=== PATIENT | male | born 1955 | race Caucasian/White ===

== ENCOUNTER 2022-01-01 11:44 | Emergency (ER) | payer MEDICARE ==
[2022-01-01 11:53] VITALS: RESP 18
[2022-01-01] MEDS ORDERED: SODIUM CHLORIDE 0.9% 500 ML 500 ML IV ONE (12:01)
[2022-01-01] MEDS ORDERED: ORPHENADRINE 30 MG/ML 2 ML VIAL IVP STA (12:07)
[2022-01-01] MEDS ORDERED: MORPHINE SULFATE 4 MG/ML SYRINGE IVP STA (12:12)
[2022-01-01 12:43] LABS: Basophils # (A) 0.1 k/uL (0-0.2); Basophils % (A) 0 %; Eosinophils % (A) 0 %; HCT 47.3 % (39.0-53.0); HGB 15.1 gm/dL (13.0-17.5); Lymphocytes % (A) 33 %; MCH 30.3 pg (25.0-35.0); MCHC 31.9 g/dL (31.0-37.0); Mean Platelet Volume 7.4; Monocytes # (A) 0.8 k/uL (0-1.0); Monocytes % (A) 5 %; Neutrophils # (A) 8.8 k/uL (1.3-7.7); Neutrophils % (A) 59 %; Platelet Count 330 k/uL (150-450); RBC 4.98 m/uL (4.30-5.90); RDW 12.8 % (11.5-15.5)
--- NOTE | 2022-01-01 12:43 | CT ---
EXAMINATION TYPE: CT brain cspine wo con DATE OF EXAM: 01/01/2022 COMPARISON: CT brain January 22, 2012 HISTORY: fall injury following seizure with neck pain. CT DLP: 1415.2 mGycm. Automated Exposure Control for Dose Reduction was Utilized. TECHNIQUE: CT scan of the head and cervical spine are performed without contrast. FINDINGS: There is no acute intracranial hemorrhage, mass effect, or midline shift identified. The ventricles and sulci are within normal limits in size for patient's age. Some areas of low attenuati on are nonspecific for reference left inferior parietal region axial image 40 and new from 2012 CT . Similar findings seen in inferior right parietal occipital region axial image 46. The globes are inta ct and the visualized sinuses are clear. The calvarium is intact. Cerumen in the bilateral extra emily tory canals is noted. Cervical spine is visualized in its entirety from C1 through upper thoracic levels and demonstrates l evoconvex scoliosis centered in the upper thoracic spine. There is grade 1 retrolisthesis C3 on C4 an d C4 on C5 along with C5 on C6 and to lesser degree C6 on C7. Prevertebral soft tissue appears within normal limits. The C1-C2 articulation is within normal limits on the coronal images. Vertebral bod y heights are maintained. Moderate to severe disc space narrowing C3-C4 and C5-C6 along with C6-C7 le vels is present. Moderate posterior spurring C5-C6 and C6-C7 levels effaces the anterior thecal sac. Old nonhealed fracture of the posterior T1 spinous process sagittal image 51 is noted as well-defined lucency is present. Review of axial images show multilevel vertebral facet spurring causing bilateral multifocal level ne ural foraminal narrowing. Thyroid gland appears within normal limits. Lung apices show no pneumothora x. IMPRESSION: 1. There is no acute fracture or dislocation evident in the cervical spine. 2. No acute intracranial hemorrhage or midline shift is seen.
[2022-01-01 12:50] LABS: Albumin 4.8 g/dL (3.5-5.0); Calcium 9.5 mg/dL (8.4-10.2); Magnesium 1.8 mg/dL (1.6-2.3); Potassium 3.6 mmol/L (3.5-5.1); Total Bilirubin 0.7 mg/dL (0.2-1.3); Total Protein 7.3 g/dL (6.3-8.2)
[2022-01-01 13:03] LABS: Prothrombin Time 11.2 sec (9.0-12.0)
--- NOTE | 2022-01-01 13:17 | ED ---
General Adult HPI - General Chief complaint: Altered Mental Status Stated complaint: Weakness Time Seen by Provider: 01/01/22 12:01 Source: patient, family, EMS, RN notes reviewed Mode of arrival: EMS Limitations: altered mental status - History of Present Illness Initial comments: Patient is a 66-year-old male presenting to the emergency room via EMS after his son witnessed seizure-like activity with altered mental status afterwards. Since the event his mental status is slowly improving back to baseline. He does continue to have generalized body aches and back pain unfortunately it is not determined if he hit his back upon falling to the ground. He and his son are unsure if he hit his head as well however he has no lacerations. He denies any previous seizure activity. He denies any focal neurological deficits or weakness. He admits to previous alcohol and drug use and is currently under court ordered testing for alcohol and drug use but reports having a medical marijuana card allowing him to use marijuana during his probation. He denies any seizure activity due to withdrawals in the past. His family reports that he was doing extensive yard work in the heat when his symptoms occurred. He has a past medical history significant for hypertension and questionable brain aneurysm. - Related Data Previous Rx's Medication Instructions Recorded Cyclobenzaprine HCl 10 mg PO Q8H 7 Days #21 tab 01/01/22 Allergies Allergy/AdvReac Type Severity Reaction Status Date / Time No Known Allergies Allergy Verified 01/01/22 11:54 Review of Systems ROS Statement: Those systems with pertinent positive or pertinent negative responses have been documented in the HPI. ROS Other: All systems not noted in ROS Statement are negative. Past Medical History Past Medical History: Hypertension Additional Past Medical History / Comment(s): Brain aneurysm 2020, History of Any Multi-Drug Resistant Organisms: None Reported Past Surgical History: Appendectomy Additional Past Surgical History / Comment(s): Right knee replacement, right arm surgery, Past Psychological History: No Psychological Hx Reported Smoking Status: Current every day smoker Past Alcohol Use History: Occasional Past Drug Use History: Marijuana General Exam General appearance: alert, in no apparent distress Head exam: Present: atraumatic, normocephalic, normal inspection Eye exam: Present: normal appearance, PERRL, EOMI. Absent: scleral icterus, conjunctival injection, periorbital swelling ENT exam: Present: normal exam, mucous membranes moist Neck exam: Present: normal inspection. Absent: tenderness, meningismus, lymphadenopathy Respiratory exam: Present: normal lung sounds bilaterally. Absent: respiratory distress, wheezes, rales, rhonchi, stridor Cardiovascular Exam: Present: regular rate, normal rhythm, normal heart sounds. Absent: systolic murmur, diastolic murmur, rubs, gallop, clicks GI/Abdominal exam: Present: soft, normal bowel sounds. Absent: distended, tenderness, guarding, rebound, rigid Extremities exam: Present: normal inspection, full ROM, normal capillary refill. Absent: tenderness, pedal edema, joint swelling, calf tenderness Back exam: Present: tenderness, muscle spasm, other (localized swelling without ecchymosis or abrasion to fine near T8) Neurological exam: Present: alert, oriented X3, CN II-XII intact Expanded [place] Total: 15 Psychiatric exam: Present: anxious Skin exam: Present: warm, dry, intact, normal color. Absent: rash Course Vital Signs 01/01/22 01/01/22 01/01/22 11:46 13:05 15:21 Temperature 98.1 F Pulse Rate 125 H 82 75 Respiratory 18 18 18 Rate Blood Pressure 186/96 141/112 186/100 O2 Sat by Pulse 97 100 100 Oximetry 01/01/22 16:33 Temperature 98.4 F Pulse Rate 98 Respiratory 18 Rate Blood Pressure 179/113 O2 Sat by Pulse 99 Oximetry Medical Decision Making - Medical Decision Making 66-year-old male with syncopal event with seizure-like activity. No previous seizure activity. Altered mental status improving slowly.Due to unknown trauma to the head and syncopal event will check CT of the head and cervical spine, x-ray of thoracic and lumbar spine, EKG, CBC, CMP, lactic acid, urin alysis, troponin, coags and urine drug screen. Will continue IV hydration and give muscle relaxer. CBC with leukocytosis noted and urinalysis with bacteria. Coags normal. Troponin negative. Lactic acid elevated with mild elevation in creatinine noted. Will continue IV hydration and repeat lactic acid. EKG shows sinus tachycardia likely secondary to dehydration and pain. Will give morphine for pain and continue IV fluids. Still complaining of persistent pain however history of opiate abuse concern for opiate tolerance will give an additional 4 mg of morphine. Lactic acid significantly improved upon recheck. CT of brain and cervical spine without acute abnormalities. X-ray of thoracic and lumbar spine shows significant degenerative disc disease correlating with patient's chronic back pain no acute osseous abnormalities. Overall symptoms of generalized body aches along with altered mental status improved with mental status back to baseline after good IV hydration. Discussed urinary tract infection findings along with dehydration status. Will treat with short course of antibiotics. Encouraged good oral hydration and follow-up with primary care provider; no indication for further diagnostic testing or laboratory studies at this time. No indication for admission or observation stay. Case discussed with Dr. Qureshi. - Lab Data Result diagrams: 01/01/22 12:03 01/01/22 14:39 Lab Results 01/01/22 01/01/22 01/01/22 Range/Units 12:03 12:03 12:03 WBC 15.0 H (3.8-10.6) k/uL RBC 4.98 (4.30-5.90) m/uL Hgb 15.1 (13.0-17.5) gm/dL Hct 47.3 (39.0-53.0) % MCV 95.0 (80.0-100.0) fL MCH 30.3 (25.0-35.0) pg MCHC 31.9 (31.0-37.0) g/dL RDW 12.8 (11.5-15.5) % Plt Count 330 (150-450) k/uL MPV 7.4 Neutrophils % 59 % Lymphocytes % 33 % Monocytes % 5 % Eosinophils % 0 % Basophils % 0 % Neutrophils # 8.8 H (1.3-7.7) k/uL Lymphocytes # 5.0 H (1.0-4.8) k/uL Monocytes # 0.8 (0-1.0) k/uL Eosinophils # 0.0 (0-0.7) k/uL Basophils # 0.1 (0-0.2) k/uL PT 11.2 (9.0-12.0) sec INR 1.0 (<1.2) APTT 21.1 L (22.0-30.0) sec Sodium 140 (137-145) mmol/L Potassium 3.6 (3.5-5.1) mmol/L Chloride 103 (98-107) mmol/L Carbon Dioxide 13 L (22-30) mmol/L Anion Gap 24 mmol/L BUN 14 (9-20) mg/dL Creatinine 1.40 H (0.66-1.25) mg/dL Est GFR (CKD-EPI)AfAm 60 (>60 ml/min/1.73 sqM) Est GFR (CKD-EPI)NonAf 51 (>60 ml/min/1.73 sqM) Glucose 131 H (74-99) mg/dL Lactic Ac Sepsis Rflx Plasma Lactic Acid Kvng (0.7-2.0) mmol/L Calcium 9.5 (8.4-10.2) mg/dL Magnesium 1.8 (1.6-2.3) mg/dL Total Bilirubin 0.7 (0.2-1.3) mg/dL AST 45 (17-59) U/L ALT 46 (4-49) U/L Alkaline Phosphatase 52 (38-126) U/L Troponin I (0.000-0.034) ng/mL Total Protein 7.3 (6.3-8.2) g/dL Albumin 4.8 (3.5-5.0) g/dL Urine Color Urine Appearance (Clear) Urine pH (5.0-8.0) Ur Specific [place] (1.001-1.035) Urine Protein (Negative) Urine Glucose (UA) (Negative) Urine Ketones (Negative) Urine Blood (Negative) Urine Nitrite (Negative) Urine Bilirubin (Negative) Urine Urobilinogen (<2.0) mg/dL Ur Leukocyte Esterase (Negative) Urine RBC (0-5) /hpf Urine WBC (0-5) /hpf Urine Bacteria (None) /hpf Hyaline Casts (0-2) /lpf Urine Mucus (None) /hpf Urine Opiates Screen (NotDetected) Ur Oxycodone Screen (NotDetected) Urine Methadone Screen (NotDetected) Ur Propoxyphene Screen (NotDetected) Ur Barbiturates Screen (NotDetected) U Tricyclic Antidepress (NotDetected) Ur Phencyclidine Scrn (NotDetected) Ur Amphetamines Screen (NotDetected) U Methamphetamines Scrn (NotDetected) U Benzodiazepines Scrn (NotDetected) Urine Cocaine Screen (NotDetected) U Marijuana (THC) Screen (NotDetected) 09/02/22 09/02/22 09/02/22 Range/Units 12:03 12:03 13:03 WBC (3.8-10.6) k/uL RBC (4.30-5.90) m/uL Hgb (13.0-17.5) gm/dL Hct (39.0-53.0) % MCV (80.0-100.0) fL MCH (25.0-35.0) pg MCHC (31.0-37.0) g/dL RDW (11.5-15.5) % Plt Count (150-450) k/uL MPV Neutrophils % % Lymphocytes % % Monocytes % % Eosinophils % % Basophils % % Neutrophils # (1.3-7.7) k/uL Lymphocytes # (1.0-4.8) k/uL Monocytes # (0-1.0) k/uL Eosinophils # (0-0.7) k/uL Basophils # (0-0.2) k/uL PT (9.0-12.0) sec INR (<1.2) APTT (22.0-30.0) sec Sodium (137-145) mmol/L Potassium (3.5-5.1) mmol/L Chloride (98-107) mmol/L Carbon Dioxide (22-30) mmol/L Anion Gap mmol/L BUN (9-20) mg/dL Creatinine (0.66-1.25) mg/dL Est GFR (CKD-EPI)AfAm (>60 ml/min/1.73 sqM) Est GFR (CKD-EPI)NonAf (>60 ml/min/1.73 sqM) Glucose (74-99) mg/dL Lactic Ac Sepsis Rflx Y Plasma Lactic Acid Kvng 14.4 H* (0.7-2.0) mmol/L Calcium (8.4-10.2) mg/dL Magnesium (1.6-2.3) mg/dL Total Bilirubin (0.2-1.3) mg/dL AST (17-59) U/L ALT (4-49) U/L Alkaline Phosphatase (38-126) U/L Troponin I 0.013 (0.000-0.034) ng/mL Total Protein (6.3-8.2) g/dL Albumin (3.5-5.0) g/dL Urine Color Urine Appearance (Clear) Urine pH (5.0-8.0) Ur Specific [place] (1.001-1.035) Urine Protein (Negative) Urine Glucose (UA) (Negative) Urine Ketones (Negative) Urine Blood (Negative) Urine Nitrite (Negative) Urine Bilirubin (Negative) Urine Urobilinogen (<2.0) mg/dL Ur Leukocyte Esterase (Negative) Urine RBC (0-5) /hpf Urine WBC (0-5) /hpf Urine Bacteria (None) /hpf Hyaline Casts (0-2) /lpf Urine Mucus (None) /hpf Urine Opiates Screen (NotDetected) Ur Oxycodone Screen (NotDetected) Urine Methadone Screen (NotDetected) Ur Propoxyphene Screen (NotDetected) Ur Barbiturates Screen (NotDetected) U Tricyclic Antidepress (NotDetected) Ur Phencyclidine Scrn (NotDetected) Ur Amphetamines Screen (NotDetected) U Methamphetamines Scrn (NotDetected) U Benzodiazepines Scrn (NotDetected) Urine Cocaine Screen (NotDetected) U Marijuana (THC) Screen (NotDetected) 01/01/22 01/01/22 01/01/22 Range/Units 13:17 13:57 14:39 WBC (3.8-10.6) k/uL RBC (4.30-5.90) m/uL Hgb (13.0-17.5) gm/dL Hct (39.0-53.0) % MCV (80.0-100.0) fL MCH (25.0-35.0) pg MCHC (31.0-37.0) g/dL RDW (11.5-15.5) % Plt Count (150-450) k/uL MPV Neutrophils % % Lymphocytes % % Monocytes % % Eosinophils % % Basophils % % Neutrophils # (1.3-7.7) k/uL Lymphocytes # (1.0-4.8) k/uL Monocytes # (0-1.0) k/uL Eosinophils # (0-0.7) k/uL Basophils # (0-0.2) k/uL PT (9.0-12.0) sec INR (<1.2) APTT (22.0-30.0) sec Sodium 137 (137-145) mmol/L Potassium 3.6 (3.5-5.1) mmol/L Chloride 107 (98-107) mmol/L Carbon Dioxide 17 L (22-30) mmol/L Anion Gap 13 mmol/L BUN 14 (9-20) mg/dL Creatinine 1.02 (0.66-1.25) mg/dL Est GFR (CKD-EPI)AfAm 87 (>60 ml/min/1.73 sqM) Est GFR (CKD-EPI)NonAf 75 (>60 ml/min/1.73 sqM) Glucose 98 (74-99) mg/dL Lactic Ac Sepsis Rflx Plasma Lactic Acid Kvng (0.7-2.0) mmol/L Calcium 8.5 (8.4-10.2) mg/dL Magnesium (1.6-2.3) mg/dL Total Bilirubin (0.2-1.3) mg/dL AST (17-59) U/L ALT (4-49) U/L Alkaline Phosphatase (38-126) U/L Troponin I (0.000-0.034) ng/mL Total Protein (6.3-8.2) g/dL Albumin (3.5-5.0) g/dL Urine Color Yellow Urine Appearance Clear (Clear) Urine pH 6.0 (5.0-8.0) Ur Specific [place] 1.017 (1.001-1.035) Urine Protein 1+ H (Negative) Urine Glucose (UA) Negative (Negative) Urine Ketones 1+ H (Negative) Urine Blood Negative (Negative) Urine Nitrite Negative (Negative) Urine Bilirubin Negative (Negative) Urine Urobilinogen 2.0 (<2.0) mg/dL Ur Leukocyte Esterase Trace H (Negative) Urine RBC 2 (0-5) /hpf Urine WBC 5 (0-5) /hpf Urine Bacteria Rare H (None) /hpf Hyaline Casts 14 H (0-2) /lpf Urine Mucus Rare H (None) /hpf Urine Opiates Screen Detected H (NotDetected) Ur Oxycodone Screen Not Detected (NotDetected) Urine Methadone Screen Not Detected (NotDetected) Ur Propoxyphene Screen Not Detected (NotDetected) Ur Barbiturates Screen Not Detected (NotDetected) U Tricyclic Antidepress Not Detected (NotDetected) Ur Phencyclidine Scrn Not Detected (NotDetected) Ur Amphetamines Screen Not Detected (NotDetected) U Methamphetamines Scrn Not Detected (NotDetected) U Benzodiazepines Scrn Not Detected (NotDetected) Urine Cocaine Screen Not Detected (NotDetected) U Marijuana (THC) Screen Detected H (NotDetected) 01/01/22 01/01/22 Range/Units 14:39 15:05 WBC (3.8-10.6) k/uL RBC (4.30-5.90) m/uL Hgb (13.0-17.5) gm/dL Hct (39.0-53.0) % MCV (80.0-100.0) fL MCH (25.0-35.0) pg MCHC (31.0-37.0) g/dL RDW (11.5-15.5) % Plt Count (150-450) k/uL MPV Neutrophils % % Lymphocytes % % Monocytes % % Eosinophils % % Basophils % % Neutrophils # (1.3-7.7) k/uL Lymphocytes # (1.0-4.8) k/uL Monocytes # (0-1.0) k/uL Eosinophils # (0-0.7) k/uL Basophils # (0-0.2) k/uL PT (9.0-12.0) sec INR (<1.2) APTT (22.0-30.0) sec Sodium (137-145) mmol/L Potassium (3.5-5.1) mmol/L Chloride (98-107) mmol/L Carbon Dioxide (22-30) mmol/L Anion Gap mmol/L BUN (9-20) mg/dL Creatinine (0.66-1.25) mg/dL Est GFR (CKD-EPI)AfAm (>60 ml/min/1.73 sqM) Est GFR (CKD-EPI)NonAf (>60 ml/min/1.73 sqM) Glucose (74-99) mg/dL Lactic Ac Sepsis Rflx Y Plasma Lactic Acid Kvng 2.2 H* (0.7-2.0) mmol/L Calcium (8.4-10.2) mg/dL Magnesium (1.6-2.3) mg/dL Total Bilirubin (0.2-1.3) mg/dL AST (17-59) U/L ALT (4-49) U/L Alkaline Phosphatase (38-126) U/L Troponin I (0.000-0.034) ng/mL Total Protein (6.3-8.2) g/dL Albumin (3.5-5.0) g/dL Urine Color Urine Appearance (Clear) Urine pH (5.0-8.0) Ur Specific [place] (1.001-1.035) Urine Protein (Negative) Urine Glucose (UA) (Negative) Urine Ketones (Negative) Urine Blood (Negative) Urine Nitrite (Negative) Urine Bilirubin (Negative) Urine Urobilinogen (<2.0) mg/dL Ur Leukocyte Esterase (Negative) Urine RBC (0-5) /hpf Urine WBC (0-5) /hpf Urine Bacteria (None) /hpf Hyaline Casts (0-2) /lpf Urine Mucus (None) /hpf Urine Opiates Screen (NotDetected) Ur Oxycodone Screen (NotDetected) Urine Methadone Screen (NotDetected) Ur Propoxyphene Screen (NotDetected) Ur Barbiturates Screen (NotDetected) U Tricyclic Antidepress (NotDetected) Ur Phencyclidine Scrn (NotDetected) Ur Amphetamines Screen (NotDetected) U Methamphetamines Scrn (NotDetected) U Benzodiazepines Scrn (NotDetected) Urine Cocaine Screen (NotDetected) U Marijuana (THC) Screen (NotDetected) - EKG Data EKG Comments: Sinus tachycardia, ventricular rate 120 bpm, MD interval 170 ms, QR yazdanism 91 ms, QT/QTC 370/30 and 79 ms, PRT axes 55, 27, 40 - Radiology Data Radiology results: report reviewed, image reviewed CT brain and cervical spine without contrast impression no acute fracture or dislocation evident the cervical spine. No acute intracranial hemorrhage or midl ine shift is seen. X-ray of lumbar spine shows moderate degenerative disc changes throughout the lumbar spine. Spondylitic doses. No acute osseous abnormalities. X-ray thoracic spine shows mild degenerative disc changes thoracic spine. No acute osseous abnormalities. Disposition Clinical Impression: New onset seizure Disposition: HOME SELF-CARE Condition: Stable Instructions (If sedation given, give patient instructions): Seizure/Epilepsy Discharge Instructions & Follow-Up Additional Instructions: Please stay well hydrated. Please follow-up with your primary care provider. Do not drive or operate any machinery until you of seeing your primary care provider and have been cleared. Please return to the Emergency Department if symptoms worsen or any other concerns. Prescriptions: Cyclobenzaprine HCl 10 mg PO Q8H 7 Days #21 tab Is patient prescribed a controlled substance at d/c from ED?: No Referrals: None,Stated [Primary Care Provider] - 1-2 days Time of Disposition: 15:54
[2022-01-01 13:23] LABS: Partial Thromboplastin Time 21.1 sec (22.0-30.0)
[2022-01-01] MEDS ORDERED: SODIUM CHLORIDE 0.9% 1,000 ML IV STA (13:34)
[2022-01-01] MEDS ORDERED: MORPHINE SULFATE 2 MG/ML SYRINGE IVP STA (13:34)
--- NOTE | 2022-01-01 13:40 | XR ---
EXAMINATION TYPE: XR lumbar spine 2 or 3V DATE OF EXAM: 01/01/2022 COMPARISON: None HISTORY: Fall TECHNIQUE: 3 view lumbar spine FINDINGS: There are 5 lumbar-type vertebral bodies. Pedicles appear intact. Degenerative disc changes are present throughout the lumbar spine. Spondylosis is present. Alignment appears preserved. Verteb ral body heights are preserved. IMPRESSION: 1. Moderate degenerative disc changes throughout the lumbar spine. 2. Spondylosis. 3. No acute osseous abnormality.
--- NOTE | 2022-01-01 13:41 | XR ---
EXAMINATION TYPE: XR thoracic spine 2V DATE OF EXAM: 01/01/2022 COMPARISON: None HISTORY: Back pain, fall TECHNIQUE: 3 views thoracic spine FINDINGS: 12 thoracic type vertebral bodies. The pedicles are intact. Subtle scoliosis present in the lower thoracic spine. Some spondylosis is present. Vertebral body heights are preserved. Mild diffus e disc space narrowing is present. IMPRESSION: 1. Mild degenerative disc changes thoracic spine. 2. No acute osseous abnormality.
[2022-01-01 14:05] LABS: Appearance,Urine Clear (Clear); Bacteria,Urine Rare /hpf; Bilirubin,Urine Negative (Negative); Blood,Urine Negative (Negative); Color,Urine Yellow; Glucose,Urine (UA) Negative (Negative); Hyaline Casts,Urine 14 /lpf (0-2); Ketones,Urine 1+ (Negative); Leukocyte Esterase,Urine Trace (Negative); Mucus,Urine Rare /hpf; Nitrite,Urine Negative (Negative); Protein,Urine 1+ (Negative); RBC,Urine 2 /hpf (0-5); Specific Gravity,Urine 1.017 (1.001-1.035); WBC,Urine 5 /hpf (0-5)
[2022-01-01 14:18] LABS: Amphetamine Screen,Urine Not Detected (NotDetected); Barbiturate Screen,Urine Not Detected (NotDetected); Benzodiazepines Screen,Urine Not Detected (NotDetected); Cocaine Screen,Urine Not Detected (NotDetected); Methadone Screen, Urine Not Detected (NotDetected); Opiate Screen,Urine Detected (NotDetected); Oxycodone Screen, Urine Not Detected (NotDetected); Phencyclidine Screen,Urine Not Detected (NotDetected); Tricyclic Antidepressant,Urine Not Detected (NotDetected); Urn Cannabinoid Scrn Detected (NotDetected)
[2022-01-01] MEDS ORDERED: SODIUM BICARB 8.4% 50 ML SYR (1 MEQ/ML) IV STA (14:24)
[2022-01-01 15:01] LABS: Calcium 8.5 mg/dL (8.4-10.2); Potassium 3.6 mmol/L (3.5-5.1)
[2022-01-01 16:35] VITALS: BP 179/113; PULSE 98; TEMP 98.4
== END 2022-01-01 16:35 | disposition home or self-care (01) ==
LOC: EC 11:44
DX: R56.9 Unspecified convulsions (principal); M54.50 Low back pain, unspecified; F12.90 Cannabis use, unspecified, uncomplicated; F11.90 Opioid use, unspecified, uncomplicated; D72.829 Elevated white blood cell count, unspecified; I10 Essential (primary) hypertension; F17.200 Nicotine dependence, unspecified, uncomplicated
CPT/HCPCS: 36415; 93005; 80053; 80048; 83605; 83735; 84484; 85025; 85610; 85730; 81001; 80306; 72070; 72100; 72125; 70450; 99285; 96374; 96375; 96376; 96361; J2270 ×2; J2360

== ENCOUNTER 2022-05-18 12:30 | Inpatient (IN) | payer MEDICARE, OTHER ==
[2022-05-18 12:54] LABS: Glucose,Whole Blood 106 mg/dL (70-110)
--- NOTE | 2022-05-18 12:55 | ED ---
General Adult HPI - General Chief complaint: Neuro Symptoms/Deficit Stated complaint: altered Time Seen by Provider: 05/18/22 12:39 Source: patient, family, RN notes reviewed Mode of arrival: wheelchair Limitations: altered mental status - History of Present Illness Initial comments: Patient is a pleasant 66-year-old male presenting to the emergency Department with concerns for change in mental status. Majority of history is taken from sun. Patient provides minimal history. Patient does have history of brain cancer with tumor resection just over a month ago. Patient also has received one treatment of radiation. Patient is on oral chemotherapy. No blood thinners. Patient was on steroids. Patient did have somewhat similar symptoms to today when he went off steroids and these were restarted. Patient was doing fine when he left MRI today. MRI was done routinely. When patient got to the car she was nonverbal. Patient had difficulty following commands and was staring. Patient is near nonverbal at this time however does slowly improve and is able to state his last name when prompted. - Related Data Previous Rx's Medication Instructions Recorded Cyclobenzaprine HCl 10 mg PO Q8H 7 Days #21 tab 01/01/22 Allergies Allergy/AdvReac Type Severity Reaction Status Date / Time No Known Allergies Allergy Verified 05/18/22 12:38 Review of Systems ROS Statement: Those systems with pertinent positive or pertinent negative responses have been documented in the HPI. ROS Other: All systems not noted in ROS Statement are negative. Limitations: ROS unobtainable due to patients medical condition Past Medical History Past Medical History: Hypertension Additional Past Medical History / Comment(s): Brain aneurysm 2020, History of Any Multi-Drug Resistant Organisms: None Reported Past Surgical History: Appendectomy Additional Past Surgical History / Comment(s): Right knee replacement, right arm surgery, Past Psychological History: No Psychological Hx Reported Smoking Status: Current every day smoker Past Alcohol Use History: Occasional Past Drug Use History: Marijuana General Exam Limitations: altered mental status General appearance: alert Head exam: Present: atraumatic Eye exam: Present: normal appearance, PERRL, other (Slight deficit with right eye fully movement to the right side) Neck exam: Present: normal inspection Respiratory exam: Present: normal lung sounds bilaterally Cardiovascular Exam: Present: regular rate, normal rhythm GI/Abdominal exam: Present: soft. Absent: tenderness Extremities exam: Present: normal inspection Neurological exam: Present: alert, altered Expanded Neurological exam: Present: inattentive, memory loss-remote event, memory loss- recent event, total aphasia (That does slightly improve with time) Cranial nerves: EOM's Intact: Abnormal Right (Difficulty moving gaze to the far right) Motor strength exam: RUE: 5, LUE: 5, RLE: 5, LLE: 5 Eye Response: (4) open spontaneously Motor Response: (6) obeys commands (Needs to be commanded multiple times) Verbal Response: (3) inappropriate words Psychiatric exam: Present: flat affect Skin exam: Present: normal color Course Vital Signs 05/18/22 05/18/22 12:35 12:49 Temperature 98.0 F Pulse Rate 59 L 59 L Respiratory 16 18 Rate Blood Pressure 148/81 131/82 O2 Sat by Pulse 95 98 Oximetry - Reevaluation(s) Reevaluation #1: 05/18/22 12:55 Case somewhat delayed by patient noncompliance. Case was discussed with practitioner Isabel walters who does not feel patient is a TPA candidate. 05/18/22 13:00 Case also discussed with Dr. Solis who thinks patient is likely of a poor candidate for TPA however would recommend running this through neurology. Ther efore code stroke has been called. 05/18/22 13:05 Son states last known well was 1220 05/18/22 13:[address] winslow who confirms patient is not a TPA candidate. There is concern for seizure and recent procedure and history. Risks are felt to outweigh the benefit. EKG Findings - EKG Results: EKG: interpreted by ERMD, sinus rhythm, normal axis, normal QRS, normal ST/T EKG shows: bradycardia Medical Decision Making - Medical Decision Making Patient reevaluated and is significantly improved. Patient and family are updated on results and plan. Dr. Bolden has been paged for admission covering city call. Neurology and oncology will be placed on consult Was pt. sent in by a medical professional or institution (, PA, STORE SALES MANAGER, urgent care, hospital, or longterm...) When possible be specific @ -No Did you speak to anyone other than the patient for history (EMS, parent, family, police, friend...)? What history was obtained from this source @ -Patient's son is present and helps provide history additional history was also taken from practitioner Tanya walters and Dr. Gloria Did you review nursing and triage notes (agree or disagree)? Why? @ -Yes and agree Were old charts reviewed (outside hosp., previous admission, EMS record, old EKG, old radiological studies, urgent care reports/EKG's, longterm records)? Report findings @ -Previous notes reviewed with practitioner Tanya walters. Differential Diagnosis (chest pain, altered mental status, abdominal pain women, abdominal pain men, vaginal bleeding, weakness, fever, dyspnea, syncope, headache, dizziness, GI bleed, back pain, seizure, CVA, palpatations, mental health)? @ -[Differential Syncope: Valvular disease, hypertrophic cardiomyopathy, pulmonary embolism, tamponade, tachycardia, bradycardia, PR, hypovolemia, hemorrhage, dissection, anemia, intracranial hemorrhage, seizure, hypoglycemia, carbon monoxide poisoning, this is not meant to be an all-inclusive list.e] EKG interpreted by me (3pts min.). @ -[As above] X-rays interpreted by me (1pt min.). @ -[None done] CT interpreted by me (1pt min.). @ -As above U/S interpreted by me (1pt. min.). @ -[None done] What testing was considered but not performed or refused? (CT, X-rays, U/S, labs)? Why? @ -[None] What meds were considered but not given or refused? Why? @ -TPA considered however patient not felt candidate, see above Did you discuss the management of the patient with other professionals (professionals i.e. , PA, STORE SALES MANAGER, lab, RT, psych nurse, renal social worker, whey department operator, teacher, chief business officer, heel caser)? Give summary @ -Manage meant discussed with practitioner Tanya walters, Dr. Gloria, and Dr. winslow Was smoking cessation discussed for >3mins.? @ -[No] Was critical care preformed (if so, how long)? @ -Yes, 33 minutes Were there social determinants of health that impacted care today? How? (Homelessness, low income, unemployed, alcoholism, drug addiction, transportation, low edu. Level, literacy, decrease access to med. care, [facility], rehab)? @ -[No] Was there de-escalation of care discussed even if they declined (Discuss DNR or withdrawal of care, Hospice)? DNR status @ -[No] What co-morbidities impacted this encounter? (DM, HTN, Smoking, COPD, CAD, Can cer, CVA, ARF, Chemo, Hep., AIDS, mental health diagnosis, sleep apnea, morbid obesity)? @ -Comorbidities of brain cancer with recent surgery. Also question recent radiation and chemotherapy however this appears not to be true Was patient admitted / discharged? Hospital course, mention meds given and route, prescriptions, significant lab abnormalities, going to OR and other pertinent info. @ -Patient will be admitted. Undiagnosed new problem with uncertain prognosis? @ -Potential new onset seizure versus edema from tumor. Drug Therapy requiring intensive monitoring for toxicity (Heparin, Nitro, Insulin, Cardizem)? @ -[No] Were any procedures done? @ -[No] Diagnosis/symptom? @ -Altered mental status Acute, or Chronic, or Acute on Chronic? @ -Acute on chronic Uncomplicated (without systemic symptoms) or Complicated (systemic symptoms)? @ -Uncomplicated Side effects of treatment? @ -[No] Exacerbation, Progression, or Severe Exacerbation? @ -Severe exacerbation Poses a threat to life or bodily function? How? (Chest pain, USA, PR, pneumonia, PE, COPD, DKA, ARF, appy, cholecystitis, CVA, Diverticulitis, Homicidal, Suicidal, threat to staff... and all critical care pts) @ -This does pose threat to life for worsening symptoms of either edema or Growth or seizure or other. - Lab Data Result diagrams: 05/18/22 13:00 05/18/22 13:00 Lab Results 05/18/22 05/18/22 05/18/22 Range/Units 12:52 13:00 13:00 WBC 25.2 H (3.8-10.6) k/uL RBC 4.64 (4.30-5.90) m/uL Hgb 14.2 (13.0-17.5) gm/dL Hct 42.1 (39.0-53.0) % MCV 90.7 (80.0-100.0) fL MCH 30.7 (25.0-35.0) pg MCHC 33.8 (31.0-37.0) g/dL RDW 14.1 (11.5-15.5) % Plt Count 348 (150-450) k/uL MPV 6.9 PT 10.4 (9.0-12.0) sec INR 1.0 (<1.2) APTT 21.1 L (22.0-30.0) sec Sodium (137-145) mmol/L Potassium (3.5-5.1) mmol/L Chloride (98-107) mmol/L Carbon Dioxide (22-30) mmol/L Anion Gap mmol/L BUN (9-20) mg/dL Creatinine (0.66-1.25) mg/dL Est GFR (CKD-EPI)AfAm (>60 ml/min/1.73 sqM) Est GFR (CKD-EPI)NonAf (>60 ml/min/1.73 sqM) Glucose (74-99) mg/dL POC Glucose (mg/dL) 106 (70-110) mg/dL POC Glu Gear Room Keeper ID Jamieson, Yazan Calcium (8.4-10.2) mg/dL Total Bilirubin (0.2-1.3) mg/dL AST (17-59) U/L ALT (4-49) U/L Alkaline Phosphatase (38-126) U/L Total Protein (6.3-8.2) g/dL Albumin (3.5-5.0) g/dL 05/18/22 Range/Units 13:00 WBC (3.8-10.6) k/uL RBC (4.30-5.90) m/uL Hgb (13.0-17.5) gm/dL Hct (39.0-53.0) % MCV (80.0-100.0) fL MCH (25.0-35.0) pg MCHC (31.0-37.0) g/dL RDW (11.5-15.5) % Plt Count (150-450) k/uL MPV PT (9.0-12.0) sec INR (<1.2) APTT (22.0-30.0) sec Sodium 133 L (137-145) mmol/L Potassium 4.3 (3.5-5.1) mmol/L Chloride 99 (98-107) mmol/L Carbon Dioxide 28 (22-30) mmol/L Anion Gap 6 mmol/L BUN 25 H (9-20) mg/dL Creatinine 0.81 (0.66-1.25) mg/dL Est GFR (CKD-EPI)AfAm >90 (>60 ml/min/1.73 sqM) Est GFR (CKD-EPI)NonAf >90 (>60 ml/min/1.73 sqM) Glucose 109 H (74-99) mg/dL POC Glucose (mg/dL) (70-110) mg/dL POC Glu Gear Room Keeper ID Calcium 8.7 (8.4-10.2) mg/dL Total Bilirubin 0.4 (0.2-1.3) mg/dL AST 20 (17-59) U/L ALT 45 (4-49) U/L Alkaline Phosphatase 54 (38-126) U/L Total Protein 6.5 (6.3-8.2) g/dL Albumin 3.9 (3.5-5.0) g/dL - Radiology Data Interpreted by me: Computed tomography scan of the brain shows metastatic disease with encephalomalacia and postsurgical changes left posterior. No definitive stroke. This was as discussed with radiology. I did interpret the films as well. Critical Care Time Critical Care Time: Yes Total Critical Care Time: 33 Disposition Clinical Impression: Altered mental status Disposition: ADMITTED IP TO THIS HOSP Is patient prescribed a controlled substance at d/c from ED?: No Referrals: None,Stated [Primary Care Provider] - 1-2 days Time of Disposition: 13:47
[2022-05-18 13:12] LABS: HCT 42.1 % (39.0-53.0); HGB 14.2 gm/dL (13.0-17.5); MCH 30.7 pg (25.0-35.0); MCHC 33.8 g/dL (31.0-37.0); MCV 90.7 fL (80.0-100.0); Mean Platelet Volume 6.9; Platelet Count 348 k/uL (150-450); RBC 4.64 m/uL (4.30-5.90); RDW 14.1 % (11.5-15.5); WBC 25.2 k/uL (3.8-10.6)
--- NOTE | 2022-05-18 13:34 | CT ---
EXAMINATION TYPE: CT brain wo con for TPA CT DLP: 1205.6 mGycm, Automated exposure control for dose reduction was used. DATE OF EXAM: 05/18/2022 1:15 PM COMPARISON: Prior CT brain 03/30/2022, MRI brain 05/18/2022, 04/03/2022. CLINICAL INDICATION:Male, 66 years old with history of Neuro deficit, acute, stroke suspected, code s troke TECHNIQUE: Brain: Multiple axial CT images of the brain were obtained without IV contrast. Coronal and sagittal reformats reviewed. FINDINGS: Brain: Extra-axial spaces: No abnormal extra-axial fluid collections. Ventricular system: Effacement of the left lateral ventricle. Cerebral parenchyma: No acute intraparenchymal hemorrhage. Similar region of hypodensity adjacent to the right lateral ventricle frontal horn. Similar region of hypodensity with blurring of the cook-whi te differentiation in the left temporal parietal lobe consistent with cytotoxic and vasogenic edema l imited to known mass. The remaining cook-white junction is well differentiated. Cerebellum: Unremarkable. Mass effect: Midline shift to the right of 3 mm Intracranial vasculature: unremarkable Soft tissues: Normal. Calvarium/osseous structures: No depressed skull fracture. Post surgical changes of the left parietal bone. Paranasal sinuses and mastoid air cells: Clear Visualized orbits: Orbital contents are intact. IMPRESSION: 1. No acute intracranial hemorrhage. 2. Similar region of hypodensity adjacent to the right lateral ventricle frontal horn and left tempo ral parietal lobe related to known malignancy and vasogenic/cytotoxic edema. 3. Postsurgical changes of the left parietal lobe and left parietal temporal lobe region. Findings called to and discussed with Dr. Ledesma at 1:30 PM on 05/18/2022.
[2022-05-18 13:35] LABS: Prothrombin Time 10.4 sec (9.0-12.0)
[2022-05-18 13:38] LABS: ALT 45 U/L (4-49); AST 20 U/L (17-59); African American GFR (CKD) >90 (>60 ml/min/1.73 sqM); Albumin 3.9 g/dL (3.5-5.0); Alkaline Phosphatase 54 U/L (38-126); Anion Gap 6 mmol/L; Blood Urea Nitrogen 25 mg/dL (9-20); Calcium 8.7 mg/dL (8.4-10.2); Carbon Dioxide 28 mmol/L (22-30); Chloride 99 mmol/L (98-107); Glucose 109 mg/dL (74-99); Non-African American GFR(CKD) >90 (>60 ml/min/1.73 sqM); Potassium 4.3 mmol/L (3.5-5.1); Sodium 133 mmol/L (137-145); Total Bilirubin 0.4 mg/dL (0.2-1.3); Total Protein 6.5 g/dL (6.3-8.2)
[2022-05-18 13:39] LABS: Partial Thromboplastin Time 21.1 sec (22.0-30.0)
--- NOTE | 2022-05-18 13:51 | CT ---
EXAMINATION TYPE: CT angio head neck CT DLP: 595.5 mGycm, Automated exposure control for dose reduction was used. DATE OF EXAM: 05/18/2022 1:44 PM COMPARISON: CT brain 05/18/2022, 03/30/2022. CLINICAL INDICATION:Male, 66 years old with history of Neuro deficit, acute, stroke suspected; PHH, C [facility] TECHNIQUE: Axially acquired helical CT angiogram of the head and neck was obtained with contrast util izing 65 cc of Isovue-370 administered intravenously. Axial images are supplemented with 3D reconstru ctions which were post-processed at an independent workstation. NASCET criteria used. FINDINGS: CTA HEAD: Please refer to dedicated CT has same day for findings. The visualized portions of the internal carotid arteries, middle cerebral arteries, anterior cerebral arteries, and posterior cerebral arteries are patent. origin of the right posterior cerebral a rtery. The basilar and vertebral arteries are patent. CTA NECK: Right Carotid System: The common carotid artery and external carotid artery are patent. The carotid bifurcation demonstrate s minimal atherosclerotic plaque without evidence of hemodynamically significant stenosis. Medial dev iation of the right internal carotid artery. The remaining portions of the internal carotid artery de monstrate normal size without significant narrowing. Left Carotid System: The common carotid artery and external carotid artery are patent. The carotid bifurcation demonstrate s minimal atherosclerotic plaque without evidence of hemodynamically significant stenosis. The remain ing portions of the internal carotid artery demonstrate normal size without significant narrowing. Vertebral arteries are patent without evidence hemodynamically significant stenosis. There is a four-vessel aortic arch. The origins of the great vessels are patent. No evidence of hemod ynamically significant stenosis. Multilevel degenerative disc disease of the cervical spine. IMPRESSION: 1. No evidence of dissection of the cervical internal carotid arteries or vertebral arteries or any e vidence of significant stenosis at the carotid bifurcations. 2. No evidence of high-grade stenosis or intracranial aneurysm.
[2022-05-18 13:52] LABS: Lymphocytes # (M) 7.06 k/uL (1.0-4.8); Monocytes # (M) 2.27 k/uL (0-1.0); Neutrophils # (M) 15.88 k/uL (1.3-7.7); Neutrophils % (M) 63 %; Nucleated Red Blood Cells 0 /100 WBC (0-0); Total Cells Counted 100
[2022-05-18 13:54] LABS: RBC Morphology Normal
--- NOTE | 2022-05-18 14:00 | XR ---
EXAMINATION TYPE: XR chest 2V DATE OF EXAM: 05/18/2022 1:57 PM COMPARISON: None TECHNIQUE: XR chest 2V Frontal and lateral views of the chest. CLINICAL INDICATION:Male, 66 years old with history of altered mental status; FINDINGS: Lungs/Pleura: There is no evidence of pleural effusion, focal consolidation, or pneumothorax. Pulmonary vascularity: Unremarkable. Heart/mediastinum: Cardiomediastinal silhouette is unremarkable. Musculoskeletal: Multiple level degenerative disc disease changes seen throughout the spine. No acute osseous adenopathy. IMPRESSION: No acute cardiopulmonary disease/process.
[2022-05-18] MEDS ORDERED: LORazepam 2 MG/ML INJ IV PRN (15:43)
[2022-05-18] MEDS ORDERED: LACOSAMIDE IV 200 MG in SODIUM CHLORIDE 0.9% 50 ML IVPB STA (15:43)
[2022-05-18] MEDS ORDERED: LORazepam 2 MG/ML INJ IV STA (15:53)
[2022-05-18] MEDS ORDERED: DEXAMETHASONE SOD PHOSPHATE 4 MG/ML 1 ML VIAL IM SCH (16:13)
--- NOTE | 2022-05-18 16:16 | P.CNNES ---
History of Present Illness Consult date: 05/18/22 Requesting physician: Parvez Ledesma Reason for Consult: ams with oncology hx History of Present Illness: This is a 66-year-old gentleman with history of brain tumor over the left hemisphere status post resection in mid April 2022 and had recent chemotherapy and radiation, seizure who presented emergency department because of staring off episode and confusion. History is obtained from family members his son and his niece or at bedside. Seems that the patient has a history of left brain tumor status post resection in the mid of April 2022 and had a recent the chemoradiation therapy in last one to 2 weeks. According to the son patient had an MRI of the brain scheduled that today at 11:30 and once that there were done he was driving back and ever around 12:15 patient was staring off and not verbally responsive and the episode lasted at least more than 20 minutes. According to the son the patient is on antiepileptic drugs because he had a seizure prior to the brain resection and had only one seizure but unsure of the medication but he stated that the patient did not get the medication likely yesterday or today in the morning he thinks. He had the brain resection and [facility]. Seems to the patient is on dexamethasone 4 mg 1 tablet twice a day. According to the patient's family members the patient is a bit more responsive currently then on initial presentation but he continues to be the not back to baseline. Patient smokes less than half a pack a day daily. Seems the patient also drinks alcohol but he has been cutting down and drinks from time to time. Some of his workup during this hospital visit consisted of: Initial white blood cells 25.2 thousand and it's predominantly neutrophilic. Glucose is 109 and it's a serum sodium is 133 BUN 25 otherwise rest of the chemistry panel is unremarkable. As a result upon presenting to our facility the ED physician was concerned that the patient was having a stroke so therefore he activity a stroke code. CT of the head is reported as no acute intracranial hemorrhage. Report is reported the patient has similar region of hypodensity with blurring of the cook-white differentiation in the left temporal parietal consistent with cytotoxic and vasogenic edema limited to known mass. As well as postsurgical changes of the left parietal lobe. I personally reviewed the CT and I do agree there is no acute or subacute ischemia there is no bleed the patient does have postsurgical density with the significant hypodensity over the left temporal borderline of occipital parietal region from his old brain mass status post resection. CT angiography of the head and neck is reported as no evidence of dissection of the cervical internal carotid artery vertebral artery or any evidence of significant stenosis at the carotid bifurcation. No evidence of high-grade stenosis or intracranial aneurysm. The ED team spoke with the stroke attending and they felt the patient was not a TPA candidate and that they were concerned of seizure. And the risk of tpa outweigh the benefits. Review of Systems Review of system is limited but the per positive and negative as per HPI Past Medical History Past Medical History: Hypertension Additional Past Medical History / Comment(s): Brain aneurysm 2020, History of Any Multi-Drug Resistant Organisms: None Reported Past Surgical History: Appendectomy Additional Past Surgical History / Comment(s): Right knee replacement, right arm surgery, Past Psychological History: No Psychological Hx Reported Smoking Status: Current every day smoker Past Alcohol Use History: Occasional Past Drug Use History: Marijuana Medications and Allergies Home Medications Medication Instructions Recorded Confirmed Type Famotidine [Pepcid] 20 mg PO BID 05/18/22 05/18/22 History Metoprolol Tartrate [Lopressor] 50 mg PO Q8H 05/18/22 05/18/22 History NIFEdipine XL [Procardia Xl] 30 mg PO DAILY 05/18/22 05/18/22 History Ondansetron Odt [Zofran Odt] 8 mg PO Q8HR PRN 05/18/22 05/18/22 History Sulfamethox-Tmp 800-160Mg [Bactrim 1 tab PO DAILY 05/18/22 05/18/22 History DS 800-160 mg] dexAMETHasone [Decadron] 4 mg PO BID 05/18/22 05/18/22 History lisinopriL [Zestril] 20 mg PO BID 05/18/22 05/18/22 History Allergies Allergy/AdvReac Type Severity Reaction Status Date / Time No Known Allergies Allergy Verified 05/18/22 14:52 Physical Examination - Vital Signs Vital Signs: Vital Signs Temp Pulse Resp BP Pulse Ox 05/18/22 14:41 64 16 121/74 99 05/18/22 12:49 59 L 18 131/82 98 05/18/22 12:35 98.0 F 59 L 16 148/81 95 Intake and Output 05/18/22 05/18/22 05/18/22 06:59 14:59 22:59 Other: Weight 86.183 kg GENERAL: The patient is lying in bed and is not in acute distress. CHEST: The heart rate is regular rate rhythm. No murmurs to auscultation. LUNG: Clear to auscultation bilaterally no wheezing noted throughout. Not labored breathing. ABDOMEN/GI: Bowel sounds present in all 4 quadrants. No tenderness to palpation throughout. NEUROLOGICAL: Higher mental function: The patient is awake, alert, oriented to self. He could not tell me the month or year. He correctly stated he was in the hospital. I had to repeat things to him for him to respond. He identified his niece as his girlfriend but correctly named his son. He was able to name pen but had preservation and named watch as pen. Language is limited. Cranial nerves: The pupils are round, equal and reactive to light. Visual pathak is hard to assess because of cooperation. Extraocular movement is intact no nystagmus is noted. Facial sensation is normal to touch throughout. The facial strength is normal throughout. Tongue is midline and moved [id number] without any difficulty. No dysarthria is noted. Shoulder shrug is normal bilaterally. Motor: The strength is 5 over 5 throughout. Normal tone and bulk. Cerebellum: Could not assess finger to nose because of cooperation. Sensation: Could not assess. Reflexes (right/left): 2+ throughout. Plantars are mute bilaterally. Results - Laboratory Findings CBC and BMP: 05/18/22 13:00 05/18/22 13:00 Abnormal Lab Findings: Abnormal Labs 05/18/22 05/18/22 05/18/22 13:00 13:00 13:00 WBC 25.2 H Neutrophils # (Manual) 15.88 H Lymphocytes # (Manual) 7.06 H Monocytes # (Manual) 2.27 H APTT 21.1 L Sodium 133 L BUN 25 H Glucose 109 H Assessment and Plan Assessment: Episode of blank stares and non-verbal is likely due to break-through seizure. History of brain mass over the left temporal/parietal and somewhat occipital region status post resection in Mid-April 2022 and recent chemo or radiation therapy in past 1-2 weeks History of seizure (had one seizure according to son prior to brain resection) Leukocytosis appears likely due to reactive from steroid use Tobacco use Plan: * I ordered an urgent EEG. * I started the patient on Vimpat loading dose of 200 mg once stat and 1 mg of Ativan. * Patient's family will attempt to get a hold of patient medication list, and they stated he is on antiepileptic drug. * Placed on seizure precautions seizure pads * Neuro checks. * Ordered plasma lactic acid vein. * Patient had MRI of the brain with and without today as an outpatient today: It is reported as postsurgical changes of the left temporoparietal lobe from tumor resection with residual nodular peripheral enhancement in vasogenic edema concerning for possible residual disease/recurrence. There is approximately 3 mm of midline shift to the right. Similar asymmetrical FLAIR signal hyperintensity along the right lateral ventricle frontal horn and splenium without corresponding enhancement. Few foci of T2/FLAIR hyperintensity and has been identified within the left lateral ventricle third ventricle is new from prior examinations suspicious for metastasis. Small foci of hemorrhage of microhemorrhage within the resection cavity in the left temporal lobe. * I started the patient on Decadron 4mg every 6 hours (was on bid dose). * Recommend the patient to follow-up with neurosurgeon as outpatient as soon as possible. * Oncology team is on board. * We'll defer the rest of the medical management to the primary team The plan is discussed with the patient's family members and the ED physician. Thank you for the consult UPDATE: I was updated by the patient nurse that are pharmacy team has checked with his pharmacy to verify the medication it does not appear that the patient is on any antiepileptic drugs. I started the patient on Vimpat 50 mg 1 tablet twice a day as an antiepileptic drug. I did not start him on Keppra since the family notified me he has a behavioral issues in the past and possible underlying depression which Keppra can worsens behavior/mood issues. I have spent a total of 35 minutes with his care. I reviewed labs/images, went over the plan with family members and ED team. Time with Patient: Greater than 30
[2022-05-18] MEDS ORDERED: ONDANSETRON ODT 8 MG TAB.RAPDIS PO PRN (16:23)
[2022-05-18] MEDS: METOPROLOL TARTRATE 50 MG TAB PO SCH (16:58)
[2022-05-18] MEDS: DEXAMETHASONE SOD PHOSPHATE 4 MG/ML 1 ML VIAL IVP SCH (17:07)
--- NOTE | 2022-05-18 20:10 | EEG ---
ELECTROENCEPHALOGRAM REPORT CLINICAL HISTORY: This is a 66-year-old gentleman with history of left brain mass, status post resection as well as seizure, who presented to the emergency department because of blank stares and confusion. The video EEG is obtained to evaluate for seizure epileptiform activity. RELEVANT MEDICATIONS: According to the family members, he is on antiepileptic drug, but unsure of the name. EEG TYPE: A routine 21-channel EEG is performed with video using the 10/20 electrode placement system. DESCRIPTION: The background awake state was only obtained. During wakefulness, the posterior- dominant rhythm over the right was [id number] voltage of 8.5 hertz activity that is well modulated, well sustained. While the left posterior dominant rhythm was 6.5 to 7.5 hertz activity that is poorly modulated, poorly sustained. There is no physiological sleep architecture seen. There is significant to continuous 2.5 to 3.5 nonrhythmic delta slowing intermixed with theta activity over the left temporal/parietal, and occipital region. There is high amplitude activity over the left parietal/central hemisphere derivatives consistent with a breach rhythm. Interictal and ictal is none. ACTIVATION PROCEDURE: Photic stimulation did not evoke a posterior driving response. There is no abnormality during the photic stimulation. Hyperventilation is not performed. CLINICAL INTERPRETATION: This is an abnormal routine EEG. There is an asymmetry of the background in which there is a mild encephalopathy over the left hemisphere, while the right the background is normal. There is focal slowing over the left temporal/parietal and occipital region that is suggestive of presence of focal cerebral dysfunction. The breach rhythm is consistent with the patient's history of skull defect. No epileptiform discharges or seizure during this study. Clinical correlation is recommended. MMODL / IJN: [id number] / [facility]
[2022-05-18] MEDS ORDERED: dexAMETHasone 4 MG TAB PO SCH (21:00)
[2022-05-18] MEDS: LACOSAMIDE 50 MG TABLET PO SCH (22:30)
[2022-05-18] MEDS: lisinopriL 20 MG TAB PO SCH (22:31)
[2022-05-18] MEDS: FAMOTIDINE 20 MG TAB PO SCH (22:31)
[2022-05-19] MEDS: METOPROLOL TARTRATE 50 MG TAB PO SCH ×3 (00:17→16:55)
[2022-05-19] MEDS: DEXAMETHASONE SOD PHOSPHATE 4 MG/ML 1 ML VIAL IVP SCH ×4 (00:17→16:55)
--- NOTE | 2022-05-19 01:04 | HP ---
HISTORY AND PHYSICAL HISTORY OF PRESENT ILLNESS: A 66-year-old white male with brain tumor of the left hemisphere, status post resection in mid April 2022, , chemotherapy radiation, presenting with a staring episode, confusion, and a seizure. MRI of the brain today shows possible recurrence of metastasis in the brain. Started on IV dexamethasone, placed on some Vimpat for seizure medications per Neurology. Smokes less than half pack a day. Also drinks alcohol. White count 25.2, neutrophilic. Glucose 109, sodium 133, BUN 25. CT of the head, no hemorrhage. There is a postsurgical density within the significant left temporooccipital parietal region, has old brain mass status post resection. CT angio head and neck negative for any blockages or aneurysms. PAST MEDICAL HISTORY: Brain aneurysm 2020, hypertension, appendectomy, right knee surgery, right arm surgery, current everyday smoker, marijuana. HOME MEDICINES: 1. Pepcid 20 mg b.i.d. 2. Lopressor 50 q.8h. 3. Procardia XL 30 daily. 4. Bactrim 1 daily. 5. Decadron 4 mg b.i.d. 6. Zestril 20 mg b.i.d. ALLERGIES: A 13-point review of systems otherwise negative. PHYSICAL EXAMINATION: VITAL SIGNS: Pulse 50s to 60s, blood pressure 120s to 130s over 70s to 80s, temp 98, and O2 99. CARDIOVASCULAR: S1, S2. LUNGS: Clear. GI: Soft. PSYCH: Giving appropriate answers. NEUROLOGIC: Cranial nerves are intact. ASSESSMENT AND PLAN: 1. Possible breakthrough seizure, history of brain mass over left temporoparietal occipital region. 2. Chronic obstructive pulmonary disease. 3. Nicotine addiction. Vimpat for seizures, MRI of the brain for possible metastases or new onset of brain lesions. Prognosis guarded. MMODL / IJN: [id number] /
[2022-05-19] MEDS: LACOSAMIDE 50 MG TABLET PO SCH ×2 (09:16→20:59)
[2022-05-19] MEDS: FAMOTIDINE 20 MG TAB PO SCH ×2 (09:16→20:59)
[2022-05-19] MEDS: lisinopriL 20 MG TAB PO SCH ×2 (09:16→20:59)
[2022-05-19] MEDS: NIFEdipine XL 30 MG TAB.ER.24 PO SCH (09:16)
[2022-05-19] MEDS ORDERED: ACETAMINOPHEN TAB 325 MG TAB PO PRN (13:36)
--- NOTE | 2022-05-19 13:42 | P.PN ---
Subjective Progress Note Date: 05/19/22 I am following-up with patient, and he states he is doing better. Per nurse no further staring off episode but having expressive aphasia and son notified nurse that is not new. Patient denies of any focal weakness, headache, numbness. Objective - Vital Signs Vital signs: Vital Signs Temp 98.3 F 05/19/22 08:00 Pulse 61 05/19/22 12:00 Resp 16 05/19/22 12:00 BP 130/75 05/19/22 12:00 Pulse Ox 95 05/19/22 12:00 FiO2 Intake & Output 05/18/22 05/19/22 05/19/22 18:59 06:59 18:59 Output Total 750 Balance -750 Weight 86.183 kg Output: Urine 750 Other: Voiding Method Urinal Urinal - Exam GENERAL: The patient is lying in bed and is not in acute distress. NEUROLOGICAL: Higher mental function: The patient is awake, alert, oriented to self. He stated he was in the hospital but did not know name. He stated the year is 2002 . He has preservation of words. Has expressive aphasia. No neglect. Cranial nerves: The pupils are round, equal and reactive to light. Visual pathak is right homonymous hemianopsia. Extraocular movement is intact no nystagmus is noted. Facial sensation is normal to touch throughout. The facial strength is normal throughout. Tongue is midline and moved [id number] without any difficulty. No dysarthria is noted. Shoulder shrug is normal bilaterally. Motor: The strength is 5 over 5 throughout. Normal tone and bulk. Cerebellum: Could not assess finger to nose because of cooperation. Sensation: Could not assess. Reflexes (right/left): 2+ throughout. Plantars are mute bilaterally. Some of his workup during this hospital visit consisted of: Initial white blood cells 25.2 thousand and it's predominantly neutrophilic. Glucose is 109 and it's a serum sodium is 133 BUN 25 otherwise rest of the chemistry panel is unremarkable. As a result upon presenting to our facility the ED physician was concerned that the patient was having a stroke so therefore he activity a stroke code. CT of the head is reported as no acute intracranial hemorrhage. Report is reported the patient has similar region of hypodensity with blurring of the cook-white differentiation in the left temporal parietal consistent with cytotoxic and vasogenic edema limited to known mass. As well as postsurgical changes of the left parietal lobe. I personally reviewed the CT and I do agree there is no acute or subacute ischemia there is no bleed the patient does have postsurgical density with the significant hypodensity over the left temporal borderline of occipital parietal region from his old brain mass status post resection. CT angiography of the head and neck is reported as no evidence of dissection of the cervical internal carotid artery vertebral artery or any evidence of significant stenosis at the carotid bifurcation. No evidence of high-grade stenosis or intracranial aneurysm. Routine EEGs abnormal. There is asymmetry of the background in which there is mild encephalopathy over the left while the right the background is normal. There is a focal slowing over the left temporal/parietal and occipital region as suggestive of present of focal cerebral dysfunction. There is breach rhythm consistent with the patient's history of skull defect. No epileptiform discharges or seizure during the study. - Labs CBC & Chem 7: 05/18/22 13:00 05/18/22 13:00 Labs: Abnormal Lab Results - Last 24 Hours (Table) 05/18/22 05/18/22 05/18/22 Range/Units 13:00 13:00 13:00 Neutrophils # (Manual) 15.88 H (1.3-7.7) k/uL Lymphocytes # (Manual) 7.06 H (1.0-4.8) k/uL Monocytes # (Manual) 2.27 H (0-1.0) k/uL APTT 21.1 L (22.0-30.0) sec Sodium 133 L (137-145) mmol/L BUN 25 H (9-20) mg/dL Glucose 109 H (74-99) mg/dL Plasma Lactic Acid Kvng (0.7-2.0) mmol/L 05/18/22 Range/Units 13:00 Neutrophils # (Manual) (1.3-7.7) k/uL Lymphocytes # (Manual) (1.0-4.8) k/uL Monocytes # (Manual) (0-1.0) k/uL APTT (22.0-30.0) sec Sodium (137-145) mmol/L BUN (9-20) mg/dL Glucose (74-99) mg/dL Plasma Lactic Acid Kvng 3.4 H* (0.7-2.0) mmol/L Assessment and Plan Assessment: Episode of blank stares and non-verbal is likely due to break-through seizure--resolved. History of brain mass over the left temporal/parietal and somewhat occipital region status post resection in Mid-April 2022 and recent chemo or radiation therapy in past 1-2 weeks Expressive aphasia with right homonymous hemianposia as result of brain mass s/p resection History of seizure (had one seizure according to son prior to brain resection) Leukocytosis appears likely due to reactive from steroid use Tobacco use Plan: * Routine EEGs abnormal. There is asymmetry of the background in which there is mild encephalopathy over the left while the right the background is normal. There is a focal slowing over the left temporal/parietal and occipital region as suggestive of present of focal cerebral dysfunction. There is breach rhythm consistent with the patient's history of skull defect. No epileptiform discharges or seizure during the study. * Continue Vimpat 50mg bid (new during this admission and appears was not on antiepileptic drug prior to this). * I highly recommend prolonged EEG/epilepsy monitoring unit as an outpatient if the patient continues to have any further as staring episodes or worsening of mentation to capture seizures. * Placed on seizure precautions seizure pads * Neuro checks. * Patient had MRI of the brain with and without today as an outpatient today: It is reported as postsurgical changes of the left temporoparietal lobe from tumor resection with residual nodular peripheral enhancement in vasogenic edema concerning for possible residual disease/recurrence. There is approximately 3 mm of midline shift to the right. Similar asymmetrical FLAIR signal hyperintensity along the right lateral ventricle frontal horn and splenium without corresponding enhancement. Few foci of T2/FLAIR hyperintensity and has been identified within the left lateral ventricle third ventricle is new from prior examinations suspicious for metastasis. Small foci of hemorrhage of microhemorrhage within the resection cavity in the left temporal lobe. * I started the patient on Decadron 4mg every 6 hours (was on bid dose). We'll defer modification of the medication to the oncology team. * Recommend the patient to follow-up with neurosurgeon as outpatient as soon as possible. * Oncology team is on board. * We'll defer the rest of the medical management to the primary team The plan is discussed with the patient's and his nurse. Patient is clear from a neurologic perspective if cleared by oncology team. Time with Patient: Less than 30
--- NOTE | 2022-05-19 19:13 | P.CONS ---
History of Present Illness - Reason for Consult Consult date: 05/19/22 altered mental status, hx brain cancer Requesting physician: Parvez Ledesma - Chief Complaint altered mental status - History of Present Illness Mr. Hughes is a pleasant 66-year-old male pt of Dr. Tariq Mata. He was diagnosed with GBM of the left hemisphere, status post resection in 03/31/22, he is due to start temodar and radiation 05/24/22. He presented to ER family reporting staring off, not responsive and confusion, 20min duration. Pt denies memory of any of this, he states he was just really tired. Denies post ictal symptoms, neuro deficits, vision loss, numbness or tingling, loss of bowel or bladder. Feels really good today. Prior to admit pt had MRI of the brain for radiation simulation. Onc did speak with ER MD, more suspicious for seizure but stroke co uld not be ruled out. Stroke team evaluated pt, felt more likely to be seizure. Neuro consulted for review of imaging, exam, have started seizure meds. It is documented per the son that pt is on antiepileptic drugs-there is no documentation of that in the office medical record of seizure medication. Recently Rad Onc increased dex to 4mg PO BID because of persistent, mod/severe ALMONTE with some improvement. Socially, smokes less than half a pack a day daily, drinks alcohol occasionally. CT of the head is reported as no acute intracranial hemorrhage, similar region of hypodensity with blurring of the cook-white differentiation in the left temporal parietal consistent with vasogenic edema limited to known mass, postsurgical changes of the left parietal lobe. CT angiography of the head and neck is reported as no evidence of dissection of the cervical internal carotid artery vertebral artery or any evidence of significant stenosis at the carotid bifurcation, no evidence of high-grade stenosis or intracranial aneurysm. Increased WBC 2/2 steroids Discussed case with Rad Onc who reviewed MRI of brain yesterday that was done for radiation simulation. Oncology Hx: Presented to [facility] on 03/30[facility]2022 with increased confusion and reported combativeness, which was not consistent with his baseline. CT of the brain revealed irregular enhancing mass in the left temporal lobe with mass- effect concerning for potential intracranial malignancy, transferred to [facility] for additional management. Brain MRI on 03/30/2022 at [facility] revealed an irregular enhancing mass in the left temporal lobe extending to the ependyma of the posterior left lateral ventricle with possible involvement of the choroid plexus. There is noted to be increased surrounding signal with T2 FLAIR along with mass-effect on the occipital horn. The mass measured 6 x 3.6 x 4.3 cm. The inferior margin was abutting the tentorium on the cortical surface. There was a left to right midline shift noted measuring approximately 0.[address] CAP 03/30/2022 revealed no evidence of primary malignancy or metastatic disease. He underwent left supratentorial craniotomy on 03/31/2022 with the resected mass being consistent with glioblastoma multiforme, WHO grade 4. IDH was noted to be wild-type with ATRX expression being retained. P53 expression was noted 10% of nuclei on immunohistochemistry. Pathology noted majority necrotic tissue with foci of viable tumor with pseudopalisading around the necrosis. MRI of the brain postoperatively on 04/03/2022 noted distortion of the cerebral peduncle due to edema from the resected neoplasm. Mass-effect was noted to be present on the left cerebral peduncle. Residual enhancement was present anteriorly adjacent to the left temporal horn extending superiorly into the ependyma of the left ventricle atria and the left ventricle itself involving the choroid plexus. Prior to his initial presentation, he notes having had 1 seizure about 1 month prior. Since that time, he had difficulty with word finding along with increased trouble with memory. His son had noted personality changes prior to the craniotomy. Since the craniotomy, his son notes that he has had slowly improved memory and return to his baseline personality. Radiation to start 05/24/22. Start Temodar at night 05/23 if he is going to take at bedtime. Review of Systems 10 point ROS is neg except as stated in HPI Past Medical History Past Medical History: Cancer, Hypertension Additional Past Medical History / Comment(s): Brain aneurysm 2020, History of Any Multi-Drug Resistant Organisms: None Reported Past Surgical History: Appendectomy Additional Past Surgical History / Comment(s): Right knee replacement, right arm surgery, lt supratentorial crainotomy 03/31/22 Past Anesthesia/Blood Transfusion Reactions: No Reported Reaction Past Psychological History: No Psychological Hx Reported Smoking Status: Current every day smoker Past Alcohol Use History: Occasional Past Drug Use History: Marijuana - Past Family History Sister(s) Family Medical History: Cancer (lung cancer) Medications and Allergies Home Medications Medication Instructions Recorded Confirmed Type Famotidine [Pepcid] 20 mg PO BID 05/18/22 05/18/22 History Metoprolol Tartrate [Lopressor] 50 mg PO Q8H 05/18/22 05/18/22 History NIFEdipine XL [Procardia Xl] 30 mg PO DAILY 05/18/22 05/18/22 History Ondansetron Odt [Zofran Odt] 8 mg PO Q8HR PRN 05/18/22 05/18/22 History Sulfamethox-Tmp 800-160Mg [Bactrim 1 tab PO DAILY 05/18/22 05/18/22 History DS 800-160 mg] dexAMETHasone [Decadron] 4 mg PO BID 05/18/22 05/18/22 History lisinopriL [Zestril] 20 mg PO BID 05/18/22 05/18/22 History Allergies Allergy/AdvReac Type Severity Reaction Status Date / Time No Known Allergies Allergy Verified 05/18/22 14:52 Physical Exam Vitals: Vital Signs Temp Pulse Pulse Resp BP BP Pulse Ox 05/19/22 04:00 56 L 18 102/59 96 05/19/22 02:00 63 18 05/19/22 00:00 97.9 F 63 18 113/63 95 05/18/22 20:00 97.8 F 60 17 159/84 100 05/18/22 18:01 97.3 F L 57 L 20 135/79 97 05/18/22 16:53 56 L 15 109/62 99 05/18/22 16:41 56 L 15 109/62 99 05/18/22 16:02 97.4 F L 58 L 18 149/81 96 05/18/22 15:41 54 L 17 106/71 100 05/18/22 14:41 64 16 121/74 99 05/18/22 12:49 59 L 18 131/82 98 05/18/22 12:35 98.0 F 59 L 16 148/81 95 Intake and Output 05/18/22 05/19/22 05/19/22 22:59 06:59 14:59 Output Total 250 500 Balance -250 -500 Output: Urine 250 500 Other: Voiding Method Urinal Urinal Weight 86.183 kg - Constitutional General appearance: average body habitus, cooperative, no acute distress - EENT Eyes: anicteric sclerae, EOMI ENT: hearing grossly normal - Neck Neck: no lymphadenopathy - Respiratory Respiratory: bilateral: CTA - Cardiovascular Rhythm: regular Heart sounds: normal: S1, S2 Abnormal Heart Sounds: no systolic murmur, no diastolic murmur, no rub, no S3 Gallop, no S4 Gallop, no click, no other leg Peripheral Edema: bilateral: None - Gastrointestinal General gastrointestinal: no absent bowel sounds, no decreased bowel sounds, no distended, no hepatomegaly, no hyperactive bowel sounds, normal bowel sounds, no organomegaly, no rigid, no scaphoid, soft, no splenomegaly, no tenderness, no umbilical hernia, no ventral hernia - Integumentary Integumentary: normal - Neurologic Neurologic: CNII-XII intact (grossly, strength equal bilaterally upper and lower extremities) - Musculoskeletal Musculoskeletal: strength equal bilaterally - Psychiatric short term memory slightly impaired Psychiatric: A&O x's 3, appropriate affect, intact judgment & insight Results CBC & Chem 7: 05/18/22 13:00 05/18/22 13:00 Labs: Abnormal Lab Results - Last 24 Hours (Table) 05/18/22 05/18/22 05/18/22 Range/Units 13:00 13:00 13:00 WBC 25.2 H (3.8-10.6) k/uL Neutrophils # (Manual) 15.88 H (1.3-7.7) k/uL Lymphocytes # (Manual) 7.06 H (1.0-4.8) k/uL Monocytes # (Manual) 2.27 H (0-1.0) k/uL APTT 21.1 L (22.0-30.0) sec Sodium 133 L (137-145) mmol/L BUN 25 H (9-20) mg/dL Glucose 109 H (74-99) mg/dL Plasma Lactic Acid Kvng (0.7-2.0) mmol/L 05/18/22 Range/Units 13:00 WBC (3.8-10.6) k/uL Neutrophils # (Manual) (1.3-7.7) k/uL Lymphocytes # (Manual) (1.0-4.8) k/uL Monocytes # (Manual) (0-1.0) k/uL APTT (22.0-30.0) sec Sodium (137-145) mmol/L BUN (9-20) mg/dL Glucose (74-99) mg/dL Plasma Lactic Acid Kvng 3.4 H* (0.7-2.0) mmol/L CT Scan - head: report reviewed Assessment and Plan (1) Glioblastoma Current Visit: Yes Status: Acute Priority: High Code(s): C71.9 - MALIGNANT NEOPLASM OF BRAIN, UNSPECIFIED SNOMED Code(s): 324789437 (2) Altered mental status Current Visit: Yes Status: Acute Priority: High Code(s): R41.82 - ALTERED MENTAL STATUS, UNSPECIFIED SNOMED Code(s): 306896352 Plan: Case discussed with ER Shaista Altered mental status -Appreciate Neurology input. Patient has been started on antiseizure medications. Patient is at his baseline today, alert and oriented x 3, active, doing much better. -Cont IV steroids for now GBM -Patient was having an MRI yesterday as a simulation for radiation. -Radiation Oncologist did contact us after we had seen pt. Unfortunately the MRI done for simulation is showing ventricular disease. This impacts treatment plan and prognosis. Radiation Oncologist would like an opportunity to speak with the Medical Oncologist before discussing final recommendations with the patient. Contacted Nursing. Plan to speak with pt and have family available in the AM Attests: I have seen and examined pt, performed HP, developed impression and plan of care. Discussed with dictator. Agree with documentation, dictated as a scribe. Time with Patient: Greater than 30
[2022-05-20] MEDS: DEXAMETHASONE SOD PHOSPHATE 4 MG/ML 1 ML VIAL IVP SCH ×3 (00:30→11:43)
[2022-05-20] MEDS: METOPROLOL TARTRATE 50 MG TAB PO SCH ×2 (00:30→08:17)
[2022-05-20 04:05] VITALS: RESP 16; TEMP 97.6
[2022-05-20 07:30] LABS: Basophils % (A) 0 %; Eosinophils % (A) 0 %; HCT 39.7 % (39.0-53.0); HGB 13.4 gm/dL (13.0-17.5); Lymphocytes % (A) 24 %; MCH 30.7 pg (25.0-35.0); MCHC 33.7 g/dL (31.0-37.0); Mean Platelet Volume 6.9; Monocytes # (A) 1.1 k/uL (0-1.0); Monocytes % (A) 5 %; Neutrophils # (A) 14.6 k/uL (1.3-7.7); Neutrophils % (A) 70 %; Platelet Count 269 k/uL (150-450); RBC 4.36 m/uL (4.30-5.90); RDW 14.1 % (11.5-15.5)
[2022-05-20 07:41] LABS: ALT 39 U/L (4-49); AST 19 U/L (17-59); African American GFR (CKD) >90 (>60 ml/min/1.73 sqM); Albumin 3.4 g/dL (3.5-5.0); Alkaline Phosphatase 54 U/L (38-126); Blood Urea Nitrogen 29 mg/dL (9-20); Calcium 8.3 mg/dL (8.4-10.2); Carbon Dioxide 24 mmol/L (22-30); Glucose 100 mg/dL (74-99); Non-African American GFR(CKD) >90 (>60 ml/min/1.73 sqM); Potassium 4.6 mmol/L (3.5-5.1); Sodium 131 mmol/L (137-145); Total Bilirubin 0.4 mg/dL (0.2-1.3); Total Protein 5.8 g/dL (6.3-8.2)
[2022-05-20 07:51] LABS: Anion Gap 6 mmol/L; Chloride 101 mmol/L (98-107)
[2022-05-20] MEDS: FAMOTIDINE 20 MG TAB PO SCH (08:17)
[2022-05-20] MEDS: LACOSAMIDE 50 MG TABLET PO SCH (08:17)
[2022-05-20] MEDS: NIFEdipine XL 30 MG TAB.ER.24 PO SCH (08:17)
[2022-05-20] MEDS: lisinopriL 20 MG TAB PO SCH (08:17)
[2022-05-20 08:20] VITALS: BP 137/80; PULSE 63
[2022-05-20] MEDS ORDERED: HYDROcodone/APAP 7.5-325MG 1 EACH TAB PO PRN (09:02)
--- NOTE | 2022-05-20 09:19 | P.HPIM ---
History of Present Illness H&P Date: 05/20/22 Chief Complaint: Glioblastoma Mr. Hughes is a 66-year-old with a WHO grade 4 glioblastoma of the left temporal lobe, status post subtotal resection on 03/31/2022. He presents with altered mental status. I initially saw this patient in consultation on 05/11/2022. In brief, he i nitially presented with personality changes and aphasia. Work-up demonstrated a left-sided temporal mass. He underwent subtotal resection per Dr. Everett at [facility] on 03/31/2022, which demonstrated WHO grade IV glioblastoma. The plan had been for treatment as per the Stupp regimen with 6 weeks of concurrent chemoradiation. Following updated MRI brain earlier this week, he developed personality changes. Stroke work-up was negative. However, the MRI brain did demonstrate progression of disease including several ventricular deposits. He was started on Decadron 4 mg every 6 hours with improvement in his mental status. This morning, he notes he is feeling much better and is ready to pursue treatment. Review of Systems Constitutional: Reports chronic headaches Eyes: denies loss of vision Ears: deny: decreased hearing Neurological: Reports headaches, Denies aphasia, Denies ataxia, Denies change in mentation, Denies change in speech, Denies double vision, Denies lack of coordination, Denies loss of vision, Denies numbness, Denies paralysis Psychiatric: Denies confusion Past Medical History Past Medical History: Cancer, Hypertension Additional Past Medical History / Comment(s): Brain aneurysm 2020, History of Any Multi-Drug Resistant Organisms: None Reported Past Surgical History: Appendectomy Additional Past Surgical History / Comment(s): Right knee replacement, right arm surgery, lt supratentorial crainotomy 03/31/22 Past Anesthesia/Blood Transfusion Reactions: No Reported Reaction Past Psychological History: No Psychological Hx Reported Smoking Status: Current every day smoker Past Alcohol Use History: Occasional Past Drug Use History: Marijuana - Past Family History Sister(s) Family Medical History: Cancer (lung cancer) Medications and Allergies Home Medications Medication Instructions Recorded Confirmed Type Famotidine [Pepcid] 20 mg PO BID 05/18/22 05/18/22 History Metoprolol Tartrate [Lopressor] 50 mg PO Q8H 05/18/22 05/18/22 History NIFEdipine XL [Procardia Xl] 30 mg PO DAILY 05/18/22 05/18/22 History Ondansetron Odt [Zofran Odt] 8 mg PO Q8HR PRN 05/18/22 05/18/22 History Sulfamethox-Tmp 800-160Mg [Bactrim 1 tab PO DAILY 05/18/22 05/18/22 History DS 800-160 mg] dexAMETHasone [Decadron] 4 mg PO BID 05/18/22 05/18/22 History lisinopriL [Zestril] 20 mg PO BID 05/18/22 05/18/22 History Allergies Allergy/AdvReac Type Severity Reaction Status Date / Time No Known Allergies Allergy Verified 05/18/22 14:52 Physical Exam Vitals: Vital Signs Temp Pulse Resp BP Pulse Ox 05/20/22 08:00 97.6 F 63 16 137/80 95 05/20/22 04:00 97.6 F 54 L 16 143/63 96 05/20/22 02:00 52 L 18 05/20/22 00:00 52 L 18 124/66 94 L 05/19/22 20:00 98.2 F 66 18 133/73 99 05/19/22 16:00 55 L 16 111/67 95 05/19/22 12:00 61 16 130/75 95 Intake and Output 05/19/22 05/20/22 05/20/22 22:59 06:59 14:59 Intake Total 180 Balance 180 Intake: Oral 180 Other: Voiding Method Urinal Urinal # Voids 1 # Bowel Movements 1 - Constitutional General appearance: average body habitus, cooperative, no acute distress - EENT Eyes: normal appearance - Respiratory Respiratory: negative: wheezing, prolonged expiration, prolonged inspiration - Neurologic gait normal Neurologic: CNII-XII intact - Psychiatric Psychiatric: A&O x's 3 Results CBC & Chem 7: 05/20/22 06:48 05/20/22 06:48 Labs: Abnormal Lab Results - Last 24 Hours (Table) 05/20/22 05/20/22 Range/Units 06:48 06:48 WBC 21.0 H (3.8-10.6) k/uL Neutrophils # 14.6 H (1.3-7.7) k/uL Lymphocytes # 5.0 H (1.0-4.8) k/uL Monocytes # 1.1 H (0-1.0) k/uL Sodium 131 L (137-145) mmol/L BUN 29 H (9-20) mg/dL Glucose 100 H (74-99) mg/dL Calcium 8.3 L (8.4-10.2) mg/dL Total Protein 5.8 L (6.3-8.2) g/dL Albumin 3.4 L (3.5-5.0) g/dL Thrombosis Risk Factor Assmnt - Choose All That Apply Any of the Below Risk Factors Present?: Yes Each Factor Represents 1 point: History of prior major surgery (<1month), Obesity (BMI >25) Other Risk Factors: No Thrombosis Risk Factor Assessment Total Risk Factor Score: 2 Thrombosis Risk Factor Assessment Level: Low Risk Assessment and Plan Assessment: Mr. Hughes is a 66-year-old with a WHO grade 4 glioblastoma of the left temporal lobe, status post subtotal resection on 03/31/2022. He presents with altered mental status. He is doing much better clinically on high-dose Decadron. However, his updated MRI brain unequivocally demonstrates disease progression including several ventricular deposits. I explained to him his very poor prognosis. I did discuss additional treatment options including WBRT and systemic therapies. However, he would like to pursue hospice. I think this is reasonable as outcomes for r ecurrent glioblastoma, particularly with metastatic deposits is very poor and he does not have curative treatment options at this juncture. I did discuss with medical oncology who will coordinate hospice referral. Please note, I shared this information directly to the patient. He would like to be the one to communicate all information to this girlfriend and next of kin and requests that all information go through him first. Omar Medina MD Radiation Oncology Time with Patient: Greater than 30
--- NOTE | 2022-05-20 13:02 | P.PN ---
Subjective Progress Note Date: 05/20/22 Principal diagnosis: GBM, ?seizure Patient is sitting up in chair with family at bedside. Family meeting was scheduled for this morning to discuss diagnosis, prognosis, and options for treatment. Dr Mederos did speak with pt this morning after consulting with Dr. Dedrick Mata. They discussed that further treatment would unlikely provide any significant relief of symptoms or quality of life. WBRT was offered but, patient declined. Pt voiced that he thought hospice would be the best treatment option for him. Patient reports feeling well and has no other reported complain ts at this time. Objective - Vital Signs Vital signs: Vital Signs Temp 97.6 F 05/20/22 08:00 Pulse 63 05/20/22 08:00 Resp 16 05/20/22 08:00 BP 137/80 05/20/22 08:00 Pulse Ox 95 05/20/22 08:00 FiO2 Intake & Output 05/19/22 05/20/22 05/20/22 18:59 06:59 18:59 Intake Total 180 Balance 180 Intake: Oral 180 Other: Voiding Method Urinal Urinal # Voids 1 2 # Bowel Movements 1 - Constitutional General appearance: Present: average body habitus, cooperative, no acute distress - EENT Eyes: Present: anicteric sclerae, EOMI ENT: Present: hearing grossly normal - Respiratory Details: breathing even and unlabored - Cardiovascular Details: skin warm and dry - Peripheral edema leg Peripheral Edema: bilateral: None - Integumentary Integumentary: Present: normal - Neurologic Neurologic Comment(s): grossly intact Neurologic: Present: CNII-XII intact (grossly) - Musculoskeletal Musculoskeletal: Present: strength equal bilaterally - Psychiatric Psychiatric: Present: A&O x's 3 - Labs CBC & Chem 7: 05/20/22 06:48 05/20/22 06:48 Labs: Abnormal Lab Results - Last 24 Hours (Table) 05/20/22 05/20/22 Range/Units 06:48 06:48 WBC 21.0 H (3.8-10.6) k/uL Neutrophils # 14.6 H (1.3-7.7) k/uL Lymphocytes # 5.0 H (1.0-4.8) k/uL Monocytes # 1.1 H (0-1.0) k/uL Sodium 131 L (137-145) mmol/L BUN 29 H (9-20) mg/dL Glucose 100 H (74-99) mg/dL Calcium 8.3 L (8.4-10.2) mg/dL Total Protein 5.8 L (6.3-8.2) g/dL Albumin 3.4 L (3.5-5.0) g/dL Assessment and Plan (1) Glioblastoma Current Visit: Yes Status: Acute Priority: High Code(s): C71.9 - MALIGNANT NEOPLASM OF BRAIN, UNSPECIFIED SNOMED Code(s): 492142549 (2) Altered mental status Current Visit: Yes Status: Acute Priority: High Code(s): R41.82 - ALTERED MENTAL STATUS, UNSPECIFIED SNOMED Code(s): 825297379 Plan: GBM: -He underwent left supratentorial craniotomy on 03/31/2022 with the resected mass, path c/w glioblastoma multiforme. Plan was for adjuvant radiation and Temodar to start 05/24/22, however, simulation MRI showed rapid disease progression s/p resection. -Family meeting was scheduled for this morning to discuss diagnosis, prognosis, and options for treatment. Dr. Mederos did speak with pt this morning, and he did contact us to discuss his recommendations. -We met with pt, girlfriend and neice. They wanted to know prognosis and what they could anticipate his disease progression to look like, pt did not want to know so, he allowed us to speak separately and answer their questions. Anticipated life expectancy days to weeks. His neurological function and mental status will progressively fail. Pt is currently A&O x 2/3 and independent in ambulation, this will change as disease progresses. All questions and concerns addressed and answered to their satisfaction. -Palliative care/hospice team consulted, spoke to them on phone and updated them on the case -D/W Butcher Apprentice. [facility] consulted. Pt and family want ot go home for as long as pt and family are able to manage care there. They will transition to an inpt facility once care becomes too much for pt and family. Altered mental status -Patient has been started on antiseizure medications. Patient is at his baseline today, alert and oriented x 3, active, doing much better. -Recommend continue oral steroids in the outpatient setting for now Time with Patient: Greater than 30
--- NOTE | 2022-05-20 13:52 | P.CONS ---
History of Present Illness - Reason for Consult Consult date: 05/20/22 Goals of care Requesting physician: Ashly Dang - Chief Complaint Altered mental status - History of Present Illness The patient is a 66-year-old male with a past medical history significant for hypertension and brain aneurysm. He presented to the emergency room on 05/18/22 with concerns of altered mental status. The patient has been diagnosed with a glioblastoma approximately 1 month ago. He is s/p resection in 03/2022, received one treatment of radiation, and was on oral chemotherapy. Unfortunately the MRI showed rapid progression of the disease. WBRT was offered but, patient declined. Review of Systems Constitutional: Reports as per HPI Past Medical History Past Medical History: Cancer, Hypertension Additional Past Medical History / Comment(s): Brain aneurysm 2019, History of Any Multi-Drug Resistant Organisms: None Reported Past Surgical History: Appendectomy Additional Past Surgical History / Comment(s): Right knee replacement, right arm surgery, lt supratentorial crainotomy 03/31/22 Past Anesthesia/Blood Transfusion Reactions: No Reported Reaction Past Psychological History: No Psychological Hx Reported Smoking Status: Current every day smoker Past Alcohol Use History: Occasional Past Drug Use History: Marijuana - Past Family History Sister(s) Family Medical History: Cancer (lung cancer) Medications and Allergies Home Medications Medication Instructions Recorded Confirmed Type Famotidine [Pepcid] 20 mg PO BID 05/18/22 05/18/22 History Metoprolol Tartrate [Lopressor] 50 mg PO Q8H 05/18/22 05/18/22 History NIFEdipine XL [Procardia XL] 30 mg PO DAILY 05/18/22 05/18/22 History Ondansetron Odt [Zofran ODT] 8 mg PO Q8HR PRN 05/18/22 05/18/22 History dexAMETHasone [Decadron] 4 mg PO BID 05/18/22 05/18/22 History lisinopriL [Zestril] 20 mg PO BID 05/18/22 05/18/22 History Lacosamide [Vimpat] 50 mg PO BID 30 Days #60 tab 05/20/22 Rx Allergies Allergy/AdvReac Type Severity Reaction Status Date / Time No Known Allergies Allergy Verified 05/18/22 14:52 Physical Exam Vitals: Vital Signs Temp Pulse Resp BP Pulse Ox 05/20/22 08:00 97.6 F 63 16 137/80 95 05/20/22 04:00 97.6 F 54 L 16 143/63 96 05/20/22 02:00 52 L 18 05/20/22 00:00 52 L 18 124/66 94 L 05/19/22 20:00 98.2 F 66 18 133/73 99 05/19/22 16:00 55 L 16 111/67 95 Intake and Output 05/19/22 05/20/22 05/20/22 22:59 06:59 14:59 Intake Total 180 Balance 180 Intake: Oral 180 Other: Voiding Method Urinal Urinal Urinal # Voids 1 2 # Bowel Movements 1 General: Well developed, well nourished. No acute distress. Chronically ill ap pearing HEENT: Head is atraumatic, normocephalic. Sclera are clear. Lungs: Respirations even and nonlabored. Abdomen/GI: Soft. No guarding, rigidity, or abdominal tenderness. Musculoskeletal/ Extremities: HAMMOND, No gross atrophy. + generalized weakness Vascular: No peripheral edema Skin: Warm and dry Neurologic: Confused at times. CN II-XII grossly intact. No focal deficits. Psychiatric: Appropriate mood and affect. Results CBC & Chem 7: 05/20/22 06:48 05/20/22 06:48 Labs: Abnormal Lab Results - Last 24 Hours (Table) 05/20/22 05/20/22 Range/Units 06:48 06:48 WBC 21.0 H (3.8-10.6) k/uL Neutrophils # 14.6 H (1.3-7.7) k/uL Lymphocytes # 5.0 H (1.0-4.8) k/uL Monocytes # 1.1 H (0-1.0) k/uL Sodium 131 L (137-145) mmol/L BUN 29 H (9-20) mg/dL Glucose 100 H (74-99) mg/dL Calcium 8.3 L (8.4-10.2) mg/dL Total Protein 5.8 L (6.3-8.2) g/dL Albumin 3.4 L (3.5-5.0) g/dL Chest x-ray: report reviewed MRI - head: report reviewed Assessment and Plan Assessment: Symptoms * Pain - 0/10 * Fatigue - yes * SOB - no * Insomnia - no * N/V - * Anxiety - yes * Depression - no * Confusion - yes * Agitation - occasional * Hallucinations - no * Appetite/weight loss - good appetite, continue regular diet * Dysphagia - no * Constipation - no * Incontinence - no * Itch - no * Cough - occasional Plan: Summary/Goals - Met with the patient, his girlfriend, his son, his niece and her ex- and explained hospice philosophies and services available. The patient mentation waxes and wanes. He is currently a little confused. 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 The family is very emotional. The son wanted to talk privately. He is still in shock because this has all happened so fast. Emotional support provided. He reports that his father's living conditions are not good. He lives in his girlfriend's son's garage. Apparently it has running water and is heated with portable heaters. His son is currently living with his cousin. He is a single dad and has two young children. He understands his father's condition and need for hospice. However, he does not want his dad to pass away in a garage. Discussed options of taking his dad home with him on hospice, or sending him to a residential with hospice, or a hospice home. He does not feel like he is able to bring his father home with him because of his children. His son is unsure what to do. His dad is very active still. He feels as though he may want to stay at home as long as possible with hospice and then transitioned to a hospice home. Referral placed for [facility] for informational visit. retail assistant manager aware. Recommendations - hospice Advanced Directives - no Code Status - full code Thank you for this consultation Vanessa Patel [facility] [employer] [phone] Email: [email or web address]
--- NOTE | 2022-05-20 17:06 | P.PN ---
Subjective Progress Note Date: 05/20/22 Per oncology team patient had resected mass on the left side on 03/31/2022 and the pathology came back as glioblastoma multiform. Patient family members at bedside and they were informed that the prognosis is poor by other specialist and hospice was speaking with family members. Family members to acknowledge that the patient has been having improvement in his blank stares. Objective - Vital Signs Vital signs: Vital Signs Temp 97.6 F 05/20/22 08:00 Pulse 63 05/20/22 08:00 Resp 16 05/20/22 08:00 BP 137/80 05/20/22 08:00 Pulse Ox 95 05/20/22 08:00 FiO2 Intake & Output 05/19/22 05/20/22 05/20/22 18:59 06:59 18:59 Intake Total 180 Balance 180 Intake: Oral 180 Other: Voiding Method Urinal Urinal Urinal # Voids 1 2 # Bowel Movements 1 - Exam GENERAL: The patient is sitting in a chair and is not in acute distress. NEUROLOGICAL: Higher mental function: The patient is awake, alert, oriented to self. He stated he was in the hospital but did not know name. He stated the year is 2002. He has preservation of words. Has expressive aphasia. No neglect. Cranial nerves: The pupils are round, equal and reactive to light. Visual pathak is right homonymous hemianopsia. Extraocular movement is intact no nystagmus is noted. Facial sensation is normal to touch throughout. The facial strength is normal throughout. Tongue is midline and moved [id number] without any difficulty. No dysarthria is noted. Shoulder shrug is normal bilaterally. Motor: The strength is 5 over 5 throughout. Normal tone and bulk. Cerebellum: Could not assess finger to nose because of cooperation. Sensation: Could not assess. Reflexes (right/left): 2+ throughout. Plantars are mute bilaterally. Some of his workup during this hospital visit consisted of: Initial white blood cells 25.2 thousand and it's predominantly neutrophilic. Glucose is 109 and it's a serum sodium is 133 BUN 25 otherwise rest of the c hemistry panel is unremarkable. As a result upon presenting to our facility the ED physician was concerned that the patient was having a stroke so therefore he activity a stroke code. CT of the head is reported as no acute intracranial hemorrhage. Report is reported the patient has similar region of hypodensity with blurring of the cook-white differentiation in the left temporal parietal consistent with cytotoxic and vasogenic edema limited to known mass. As well as postsurgical changes of the left parietal lobe. I personally reviewed the CT and I do agree there is no acute or subacute ischemia there is no bleed the patient does have postsurgical density with the significant hypodensity over the left temporal borderline of occipital parietal region from his old brain mass status post res ection. CT angiography of the head and neck is reported as no evidence of dissection of the cervical internal carotid artery vertebral artery or any evidence of significant stenosis at the carotid bifurcation. No evidence of high-grade stenosis or intracranial aneurysm. Routine EEGs abnormal. There is asymmetry of the background in which there is mild encephalopathy over the left while the right the background is normal. There is a focal slowing over the left temporal/parietal and occipital region as suggestive of present of focal cerebral dysfunction. There is breach rhythm consistent with the patient's history of skull defect. No epileptiform discharges or seizure during the study. - Labs CBC & Chem 7: 05/20/22 06:48 05/20/22 06:48 Labs: Abnormal Lab Results - Last 24 Hours (Table) 05/20/22 05/20/22 Range/Units 06:48 06:48 WBC 21.0 H (3.8-10.6) k/uL Neutrophils # 14.6 H (1.3-7.7) k/uL Lymphocytes # 5.0 H (1.0-4.8) k/uL Monocytes # 1.1 H (0-1.0) k/uL Sodium 131 L (137-145) mmol/L BUN 29 H (9-20) mg/dL Glucose 100 H (74-99) mg/dL Calcium 8.3 L (8.4-10.2) mg/dL Total Protein 5.8 L (6.3-8.2) g/dL Albumin 3.4 L (3.5-5.0) g/dL Assessment and Plan Assessment: Episode of blank stares and non-verbal is likely due to break-through seizure--resolved. History of brain mass over the left temporal/parietal and somewhat occipital region status post resection in 03/31/22 and path revealed Glioblastoma Multiforme Expressive aphasia with right homonymous hemianposia as result of brain mass s/p resection History of seizure (had one seizure according to son prior to brain resection) Leukocytosis appears likely due to reactive from steroid use Tobacco use Plan: * Routine EEGs abnormal. There is asymmetry of the background in which there is mild encephalopathy over the left while the right the background is normal. There is a focal slowing over the left temporal/parietal and occipital region as suggestive of present of focal cerebral dysfunction. There is breach rh ythm consistent with the patient's history of skull defect. No epileptiform discharges or seizure during the study. * Continue Vimpat 50mg bid (new during this admission and appears was not on antiepileptic drug prior to this). * Patient had MRI of the brain with and without today as an outpatient today: It is reported as postsurgical changes of the left temporoparietal lobe from tumor resection with residual nodular peripheral enhancement in vasogenic edema concerning for possible residual disease/recurrence. There is approximately 3 mm of midline shift to the right. Similar asymmetrical FLAIR signal hyperintensity along the right lateral ventricle frontal horn and splenium without corresponding enhancement. Few foci of T2/FLAIR hyperintensity and has been identified within the left lateral ventricle third ventricle is new from prior examinations suspicious for metastasis. Small foci of hemorrhage of microhemorrhage within the resection cavity in the left temporal lobe. * I started the patient on Decadron 4mg every 6 hours (was on bid dose). We'll defer modification of the medication to the oncology team. * Recommend the patient to follow-up with neurosurgeon and neurologist as outpatient as soon as possible if patient and family desires to continue with management and further care. * Oncology team is on board. They notified family that prognosis is poor. * Hospice team is consulted. * We'll defer the rest of the medical management to the primary team The plan is discussed with family members. No further neurological work-up Time with Patient: Less than 30
== END 2022-05-20 13:10 | disposition hospice, home (50) | DRG 54 ==
LOC: EC 12:30 → 3SCARD 14:39
PROVIDERS: ADMIT Family Medicine; ATTEND Family Medicine
PROC: D0001ZZ Beam Radiation of Brain using Photons 1 - 10 MeV (ICD-10-PCS; principal; 2022-05-19)
DX: C71.5 Malignant neoplasm of cerebral ventricle (principal); G93.6 Cerebral edema; C79.9 Secondary malignant neoplasm of unspecified site; R47.01 Aphasia; Z28.310 Unvaccinated for COVID-19; Z28.21 Immunization not carried out because of patient refusal; F17.210 Nicotine dependence, cigarettes, uncomplicated; J44.9 Chronic obstructive pulmonary disease, unspecified; F41.9 Anxiety disorder, unspecified; T38.0X5A Adverse effect of glucocorticoids and synthetic analogues, initial encounter; G40.909 Epilepsy, unspecified, not intractable, without status epilepticus; I10 Essential (primary) hypertension; I25.10 Atherosclerotic heart disease of native coronary artery without angina pectoris; H53.461 Homonymous bilateral field defects, right side; Z51.5 Encounter for palliative care; Z66 Do not resuscitate; Z80.1 Family history of malignant neoplasm of trachea, bronchus and lung; Z96.651 Presence of right artificial knee joint; Z79.899 Other long term (current) drug therapy; Z92.3 Personal history of irradiation; Z92.21 Personal history of antineoplastic chemotherapy
CPT/HCPCS: 36415; 70450; 70496; 70498; 70553; 71046; 77295; 77300; 77334; 80053; 83605; 84145; 85025; 85610; 85730; 93005; 95816; 96365; 96375; 99291

== ENCOUNTER → 2022-05-18 | Outpatient (CLI) | payer MEDICARE, OTHER ==
--- NOTE | 2022-05-18 15:24 | MR ---
EXAMINATION TYPE: MR brain wo/w con DATE OF EXAM: 05/18/2022 COMPARISON: MRI brain 04/03/2022, 03/30/2022, CT head 03/30/2022, 05/18/2022. HISTORY: Malignant neoplasm of temporal lobe. TECHNIQUE: Multiplanar, multisequence images of the brain and brainstem is performed without and with IV contras t, utilizing 8.5 mL intravenous Gadavist . FINDINGS: Postsurgical changes of the left temporoparietal lobe from resection of known tumor. There is associa gm mild restricted diffusion within the resection cavity and along the lateral ventricles correspond ing to metastatic deposits. Associated microhemorrhage within the left temporal/parietal lobe and lat eral ventricles related to prior microhemorrhage. No extra-axial fluid collections identified. There is peripheral nodular enhancement involving the left parietotemporal resection cavity with foci of en hancement along the left lateral wall of the body of the left lateral ventricle with focal enhancemen t measuring 8 mm (series 802, image 35) and measuring 7 mm (series 802, age 32). There is enhancement involving the posterior horn of the left lateral ventricle and to a lesser degree the temporal horn on the left lateral ventricle. There is surrounding vasogenic edema. Additional focus of enhancement along the third ventricle measuring 10 mm (series 802, image 26). There is corresponding FLAIR signal hyperintensity with confluent region along the right frontal horn of the right lateral ventricle and along the splenium bilaterally. Proximally 3 mm midline shift to the right. 2 foci of T1 signal hype rintensity consistent with hemorrhage in the left temporal lobe measuring up to 6 mm (series 201, ambrosio ge 6 and series 501, image 11). The craniocervical junction appears within normal limits. The dural venous sinuses appear patent. The visualized sinuses are clear and the globes are intact. IMPRESSION: 1. Postsurgical changes of the left temporoparietal lobes from tumor resection with residual nodular peripheral enhancement and vasogenic edema concerning for possible residual disease/ recurrence. Ther e is approximately 3 mm of midline shift to the right. 2. Similar asymmetric FLAIR signal hyperintensity along the right lateral ventricle frontal horn and splenium without corresponding enhancement. 3. Few foci of T2/FLAIR hyperintensity and enhancement identified within the left lateral ventricle a nd third ventricle is new from prior examination and is suspicious for metastasis. 4. Small foci of hemorrhage and microhemorrhage within the resection cavity and left temporal lobe.
== END | disposition home or self-care (01) ==
LOC: RADMRIMAIN 11:24
PROVIDERS: ATTEND Radiology Radiation Oncology
DX: C71.2 Malignant neoplasm of temporal lobe (principal); I61.8 Other nontraumatic intracerebral hemorrhage; G93.89 Other specified disorders of brain; Z98.890 Other specified postprocedural states
CPT/HCPCS: 70553; A9585